=== PATIENT | male | born 1940 | race Caucasian/White ===

== ENCOUNTER 2017-07-20 09:57 | Outpatient (RCR) | payer MEDICARE, SELFPAY ==
[2017-07-20 10:16] LABS: Prothrombin Time Fingerstick 37.3 SEC (11.9-14.4)
== END 2017-07-20 10:15 | disposition home or self-care (01) ==
LOC: LAB 09:57
PROVIDERS: Family Provider Family Medicine; PCP Family Medicine; Visit Provider Internal Medicine Cardiovascular Disease
DX: I48.2 Chronic atrial fibrillation (principal)
CPT/HCPCS: 36416; 85610

== ENCOUNTER 2017-08-14 09:31 | Outpatient (RCR) | payer MEDICARE, SELFPAY ==
[2017-07-08 09:32] VITALS: BP 136/87; BMI 28.4
== END 2017-08-14 10:00 | disposition home or self-care (01) ==
LOC: LAB 09:31
PROVIDERS: Family Provider Family Medicine; PCP Family Medicine; Visit Provider Internal Medicine Cardiovascular Disease
DX: I48.2 Chronic atrial fibrillation (principal)
CPT/HCPCS: 36416; 85610

== ENCOUNTER 2017-09-15 09:37 | Outpatient (RCR) | payer MEDICARE, SELFPAY ==
[2017-09-15 09:55] LABS: Prothrombin Time Fingerstick 38.6 SEC (11.9-14.4)
== END 2017-09-15 10:00 | disposition home or self-care (01) ==
LOC: LAB 09:37
PROVIDERS: Family Provider Family Medicine; PCP Family Medicine; Visit Provider Internal Medicine Cardiovascular Disease
DX: I48.2 Chronic atrial fibrillation (principal)
CPT/HCPCS: 36416; 85610

== ENCOUNTER → 2017-09-17 09:01 | Outpatient (CLI) | payer MEDICARE, SELFPAY ==
[2017-09-17 12:42] LABS: Cholesterol 133 mg/dL (200); Glucose 105 mg/dL (74-106); High Density Lipoprotein 49 mg/dL; Triglycerides 82 mg/dL; Very Low Density Lipoprotein 16 mg/dL (5-40)
== END ==
PROVIDERS: Family Provider Family Medicine; PCP Family Medicine; Visit Provider Family Medicine
DX: E78.5 Hyperlipidemia, unspecified (principal)
CPT/HCPCS: 36415; 80061; 82947

== ENCOUNTER 2017-10-01 15:31 | Outpatient (RCR) | payer MEDICARE, SELFPAY ==
[2017-10-01 15:46] LABS: Prothrombin Time Fingerstick 32.3 SEC (11.9-14.4)
== END 2017-10-01 16:00 | disposition home or self-care (01) ==
LOC: LAB 15:31
PROVIDERS: Family Provider Family Medicine; PCP Family Medicine; Visit Provider Internal Medicine Cardiovascular Disease
DX: I48.2 Chronic atrial fibrillation (principal)
CPT/HCPCS: 36416; 85610

== ENCOUNTER 2017-11-09 10:18 | Outpatient (RCR) | payer MEDICARE, SELFPAY | END 2017-11-09 11:00 | disposition home or self-care (01) | LOC: LAB 10:18 | PROVIDERS: Family Provider Family Medicine; PCP Family Medicine; Visit Provider Internal Medicine Cardiovascular Disease | DX: I48.2 Chronic atrial fibrillation (principal) | CPT/HCPCS: 36416; 85610 ==

== ENCOUNTER 2017-12-16 09:43 | Outpatient (RCR) | payer MEDICARE, SELFPAY ==
[2017-12-16 09:56] LABS: Prothrombin Time Fingerstick 31.4 SEC (11.9-14.4)
== END 2017-12-17 10:00 | disposition home or self-care (01) ==
LOC: LAB 09:43
PROVIDERS: Family Provider Family Medicine; PCP Family Medicine; Visit Provider Internal Medicine Cardiovascular Disease
DX: I48.2 Chronic atrial fibrillation (principal)
CPT/HCPCS: 36416; 85610

== ENCOUNTER 2018-01-06 08:30 | Outpatient (RCR) | payer MEDICARE, SELFPAY | END 2018-01-06 10:00 | disposition home or self-care (01) | LOC: LAB 08:30 | PROVIDERS: Family Provider Family Medicine; PCP Family Medicine; Visit Provider Internal Medicine Cardiovascular Disease | DX: I48.2 Chronic atrial fibrillation (principal) | CPT/HCPCS: 36416; 85610 ==

== ENCOUNTER → 2018-02-16 09:46 | Outpatient (CLI) | payer MEDICARE, SELFPAY ==
[2018-02-16 12:17] LABS: Absolute Lymphocyte Count 0.84 X10^3/ul (0.83-4.51); Basophil# 0.02 X10^3/uL; Basophil% 0.4 % (0-1); Eosinophils% 4.3 % (0-5); Hematocrit 46.2 % (40-54); Hemoglobin 15.5 g/dl (13.0-16.5); Lymphocyte # 0.84 X10^3/ul (4.0); Lymphocyte % 18.1 % (19-41); Mean Corp Hgb Conc 33.5 g/gl (32-36); Mean Corpuscular Hgb 31.4 pg (27.0-32.0); Mean Corpuscular Volume 93.5 fL (80-94); Mean Platelet Vol. 9.9 fl (6.2-12.0); Monocyte# 0.58 X10^3/uL; Monocyte% 12.5 % (0-10); Neutrophil % 64.5 % (47-70); POSITIVE COUNT NO; POSITIVE DIFFERENTIAL NO; POSITIVE MORPHOLOGY NO; Platelet Count 159 K/mm3 (150-450); RBC Distribution Width CV 12.8 % (11.6-14.6); RBC Distribution Width SD 43.6 fl (35.1-43.9); Red Blood Count 4.94 M/mm3 (4.6-6.2); White Blood Count 4.7 K/mm3 (4.4-11.0)
[2018-02-16 12:37] LABS: International Normalized Ratio 2.9; Prothrombin Time (Protime)PT. 30.3 SECONDS (11.7-14.9)
[2018-02-16 12:41] LABS: Anion Gap 10 (5-15); BUN 14 mg/dL (7-18); BUN/Creat Ratio 18.7 RATIO (10-20); Calcium,Total 8.8 mg/dL (8.5-10.1); Chloride 107 mmol/L (98-107); Creatinine, Serum 0.75 mg/dL (0.70-1.30); EST Glomerular Filtration Rate 107 mL/min (>60); Est Glom Filt Rate - Afr Amer 129 mL/min (>60); Glucose 102 mg/dL (74-106); Potassium 4.1 mmol/L (3.5-5.1); Sodium Level 140 mmol/L (136-145); T4 Free Direct 1.12 ng/dL (0.76-1.46); Thyroid Stim Hormone (TSH) 1.01 uIU/mL (0.358-3.74)
== END ==
PROVIDERS: Family Provider Family Medicine; PCP Family Medicine; Visit Provider Family Medicine
DX: I10 Essential (primary) hypertension (principal); I48.91 Unspecified atrial fibrillation; D69.6 Thrombocytopenia, unspecified
CPT/HCPCS: 36415; 80048; 83735; 84439; 84443; 85025; 85610

== ENCOUNTER → 2018-02-17 10:34 | Outpatient (CLI) | payer MEDICARE, SELFPAY | PROVIDERS: Family Provider Family Medicine; PCP Family Medicine; Visit Provider Family Medicine | DX: M54.2 Cervicalgia (principal); G44.209 Tension-type headache, unspecified, not intractable | CPT/HCPCS: 72050 ==

== ENCOUNTER 2018-03-23 08:30 | Outpatient (RCR) | payer MEDICARE, SELFPAY ==
--- NOTE | 2018-02-24 11:57 | HP.PTEVAL_ITS ---
Patient's Visit Information ANNMARIE STAPLES is a 77 year old M referred to Physical Therapy by Kendrick Up MD with a diagnosis of CHRONIC NECK PAIN ,TENSION ABEBE. Date of Evaluation: 02/24/18 Physical Therapist: Andry Loyd PT, - Visit Plan Frequency: 2x /Week Duration: 4 Weeks Plan: manual therapy cervical traction/AA-OA MOS,OCCIPITAL RELEASE ,STM,US,CP/ MHP. graded postural/cervical ROM - Subjective Subjective: This 77 y/o male presents to physical therapy with chronic neck pain ,tension ABEBE. Patient pain located left occiput referrs to left eye. Patient symptoms have been problematic for about one year. Seen massage therapy helped. Seen Dr did x-rays.Symptoms worse with flexion ,siiting ,driving, computer work ,turn to left worse.Better with massage. Denies parahesia/ tingling. Denies dizziness,nausea,tinnitus. Symptoms desribed as ache, occassional sharp pain behinmd eye.Sleep okay at night. SOCIAL: . 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 VOCATION: retired - Pain Left Neck Pain Intensity (Out of 10): 3 Pain Intensity Range: 8 Comment: left occiput - Objective POSTURE: mild foward posture ,thoracic kyphosis,prutruded head. PALPATION: tender base of left occiput. NEURO: denies parathesia/tingling ,reflexes 2/3 C5 -6-7. AROM: BUE WFL. MMT: 4/5 ,except shoulders 4-/5. CERVICAL ROM: flexion min loss pain ,lateral flexion /rotation mod/severe loss pain left,retraction mod loss,extension min/mod loss. UPPER CERVICAL SPINE : mod loss. - Special Tests C/S Radiculapathy - Left Upper limb tension test: Negative C/S Radiculapathy - Right Upper limb tension test: Negative C/S Radiculapathy - Left Spurlings: Positive C/S Radiculapathy - Right Spurlings: Negative C/S Radiculapathy - Left Cervical distraction: Negative C/S Radiculapathy - Right Cervical distraction: Negative C/S Radiculapathy - Left Relief test: Positive C/S Radiculapathy - Right Relief test: Negative C/S Radiculapathy - Valsalva: Negative Sharp Jacinto: Negative Vertebral Artery Test: Negative Alar Ligament Test: Negative Cervical Sitting: Protrusion - Mechanical Response: No effect Cervical Sitting: Protrusion - Symptoms During Testing: Increases Cervical Sitting: Protrusion - Symptoms After Testing: Worse Cervical Sitting: Retraction - Mechanical Response: No effect Cervical Sitting: Retraction - Symptoms During Testing: Increases Cervical Sitting: Retraction - Symptoms After Testing: No worse - Goals Goal 1:: Patient to be Independant with HEP Goal Time Frame: 4-6 Weeks Goal 2:: Patient to be Independant with pposture for ADL'S Goal Time Frame: 4-6 Weeks Goal 3:: Patient decrease pain by 50% or greater to improve function with ADLS Goal Time Frame: 4-6 Weeks Goal 4:: Patient decrease cevical ROM towards left with min pain or ABEBE for function of recovery Goal Time Frame: 4-6 Weeks Goal 5:: Patient be able to perform ADL'S and housework tasks with min limitations Goal Time Frame: 4-6 Weeks Goal 6:: Patient neck owestry score by 5 points to improve QOL Goal Time Frame: 4-6 Weeks - Rehabilitation Potential Physical Therapy Diagnosis: This patient has decrease cercical ROM with pain worse towards left ,ABEBE left occiput impaires ADLS' ,and housework thus benifit from skilled PT Rehabilitation Potential: Good - Anticipated Interventions Patient/Client Instruction: Educate patient on: Condition, Plan of Care For the Purpose of:: To decrease pain, To increase ROM, To improve muscle performance and motor function, To improve ability to perform ADL's, To increase tolerance to activity/condition/position, To improve ability of physical actions for home/community/work/leisure, To improve health of tissue, To decrease soft tissue restriction, To increase flexibility/ROM, To improve ability to perform tasks related to life management Therapeutic Exercise to Include: Strength training, Postural training, Flexibilty training, Active ROM, Victoria Exercises For the Purpose of:: To decrease pain, To increase ROM, To improve nutrient delivery to tissue, To increase oxygenation perfusion, To increase tolerance to activity/condition/position, To improve ability of physical actions for home/ community/work/leisure, To improve health of tissue, To decrease soft tissue restriction, To increase flexibility/ROM, To prevent re-injury Manual Therapy Techniques to Include: Mobilization Comment: CERVICAL TRACTION For the Purpose of:: To decrease swelling/inflammation, To increase ROM, To improve nutrient delivery to tissue, To increase oxygenation perfusion, To improve health of tissue, To decrease soft tissue restriction, To increase flexibility/ROM Thank you for the opportunity to evaluate your patient. For Medicare and Medicare HMO plans, please review the plan of care and approve it. It will need to be FAXED BACK to us at [phone] for Medicare purposes. Please let me know if there are questions or concerns regarding this plan of care. Physician Signature: Date:
--- NOTE | 2018-03-23 12:36 | HP.PTDCSUM ---
HP - PT D/C Summary It has been my pleasure to treat ANNMARIE STAPLES under orders from Kendrick Up MD, for the diagnosis of CHRONIC NECK PAIN ,TENSION ABEBE for a total of 9 visit(s). Discharge Date: 03/23/18 Please see the following information for a summary of their discharge status. - Subjective Subjective: Doing okay ,no ABEBE. yesterday smptoms where worse - Pain Left Neck Pain Intensity (Out of 10): 1 - Overall Improvement % Improvement: 50 - Objective Objective/Function: POSTURE: mild foward posture,head foward. NEURO:denies parathesia/tingling ,reflexes intact. PALPATION: tender left occiput. CERVICAL ROM: flexion min loss,lateral flexion/rotation mod loss,extension mod loss. MMT: 4/5,shoulder 4-/5 - Goals Goal 1:: Patient to be Independant with HEP Goal Progress: Progressing Goal 2:: Patient to be Independant with pposture for ADL'S Goal Progress: Goal Met Goal 3:: Patient decrease pain by 50% or greater to improve function with ADLS Goal Progress: Goal Met Goal 4:: Patient decrease cevical ROM towards left with min pain or ABEBE for function of recovery Goal Progress: Progressing Goal 5:: Patient be able to perform ADL'S and housework tasks with min limitations Goal Progress: Progressing Goal 6:: Patient neck owestry score by 5 points to improve QOL Goal Progress: Goal Met - Plan Plan: D/C -RTD - D/C Information Discharge Comments: POSSIBLE TRACTION CERVICAL UNIT If there are questions or concerns regarding this patient's physical therapy, please feel free to call me at [phone]. Thank you for the referral of this patient. Sincerely, Andry Loyd, PT,
== END 2018-03-23 19:00 | disposition home or self-care (01) ==
LOC: PT 08:30
PROVIDERS: Family Provider Family Medicine; PCP Family Medicine; Visit Provider Family Medicine
DX: M54.2 Cervicalgia (principal); G44.209 Tension-type headache, unspecified, not intractable
CPT/HCPCS: 97035; 97140; 97162

== ENCOUNTER 2018-03-23 09:34 | Outpatient (RCR) | payer MEDICARE, SELFPAY ==
[2018-03-23 09:46] LABS: Prothrombin Time Fingerstick 32.4 SEC (11.9-14.4)
== END 2018-03-23 11:00 | disposition home or self-care (01) ==
LOC: LAB 09:34
PROVIDERS: Family Provider Family Medicine; PCP Family Medicine; Visit Provider Internal Medicine Cardiovascular Disease
DX: I48.2 Chronic atrial fibrillation (principal)
CPT/HCPCS: 36416; 85610; 97035; 97140

== ENCOUNTER 2018-05-21 09:19 | Outpatient (RCR) | payer MEDICARE, SELFPAY ==
[2018-05-06 09:41] LABS: Prothrombin Time Fingerstick 36.7 SEC (11.9-14.4)
[2018-05-11 10:34] LABS: International Normalized Ratio 1.3; Prothrombin Time (Protime)PT. 15.7 SECONDS (11.7-14.9)
[2018-05-21 09:36] LABS: Prothrombin Time Fingerstick 28.2 SEC (11.9-14.4)
== END 2018-05-24 10:54 | disposition home or self-care (01) ==
LOC: LAB 09:19
PROVIDERS: Family Provider Family Medicine; PCP Family Medicine; Referring Provider Internal Medicine Cardiovascular Disease; Visit Provider Internal Medicine Cardiovascular Disease
DX: I48.2 Chronic atrial fibrillation (principal)
CPT/HCPCS: 36415; 36416; 85610

== ENCOUNTER 2018-06-11 09:51 | Outpatient (RCR) | payer MEDICARE, SELFPAY ==
[2018-06-11 10:31] LABS: Prothrombin Time Fingerstick 29.9 SEC (11.9-14.4)
== END 2018-06-11 10:00 | disposition home or self-care (01) ==
LOC: LAB 09:51
PROVIDERS: Family Provider Family Medicine; PCP Family Medicine; Referring Provider Internal Medicine Cardiovascular Disease; Visit Provider Internal Medicine Cardiovascular Disease
DX: I48.2 Chronic atrial fibrillation (principal)
CPT/HCPCS: 36416; 85610

== ENCOUNTER 2018-07-13 12:00 | Outpatient (RCR) | payer MEDICARE, SELFPAY ==
[2018-07-01 10:30] LABS: International Normalized Ratio 1.3; Prothrombin Time (Protime)PT. 15.7 SECONDS (11.7-14.9)
[2018-07-13 12:11] LABS: Prothrombin Time Fingerstick 28.2 SEC (11.9-14.4)
== END 2018-07-13 13:00 | disposition home or self-care (01) ==
LOC: LAB 12:00
PROVIDERS: Family Provider Family Medicine; PCP Family Medicine; Referring Provider Internal Medicine Cardiovascular Disease; Visit Provider Internal Medicine Cardiovascular Disease
DX: I48.2 Chronic atrial fibrillation (principal)
CPT/HCPCS: 36415; 36416; 85610

== ENCOUNTER → 2018-07-26 10:14 | Outpatient (CLI) | payer MEDICARE, SELFPAY ==
--- NOTE | 2018-07-26 10:22 | MRI_ITS ---
STUDY: MRI CERVICAL SPINE WITHOUT CONTRAST REASON FOR EXAM: Male, 77 years old. L NECK STIFFNESS X 1.5 YRS. TECHNIQUE: Standardized fat and water weighted pulse sequences were obtained in the sagittal and axial planes. COMPARISON: X-ray dated February 17, 2018 FINDINGS: Normal foramen magnum and brainstem-cervical cord junction. Normal craniovertebral junction. Normal anterior atlantoaxial articulation. Normal odontoid process. There is straightening of the normal cervical lordosis. C2-3: There is minimal disc space narrowing and endplates spondylosis. There is a Minimal disc osteophyte complex without significant central canal stenosis. There is uncovertebral and facet arthropathy with minimal right and mild left foraminal stenosis. C3-4: There is moderate disc space narrowing and endplates spondylosis. There is a mild disc osteophyte complex with out significant central canal stenosis. There is uncovertebral facet arthropathy with mild right and moderate left foraminal stenosis. C4-5: There is moderate disc space narrowing and endplates spondylosis. There is a mild disc osteophyte complex with mild central canal stenosis. There is uncovertebral arthropathy with moderate bilateral foraminal stenosis. C5-6: There is moderate disc space narrowing and endplates spondylosis. There is a moderate disc osteophyte complex with moderate central canal stenosis. There is uncovertebral and facet arthropathy with moderate right and severe left foraminal stenosis. C6-7: There is moderate disc space narrowing and endplates spondylosis. There is a minimal disc osteophyte complex without significant central canal stenosis. There is uncovertebral arthropathy with mild bilateral foraminal stenosis. C7-T1: There is severe disc space narrowing and endplates spondylosis. There is a minimal disc osteophyte complex without significant central canal stenosis. There is uncovertebral nephropathy with moderate right and mild left foraminal stenosis. Normal cervical cord. Normal visualized soft tissue structures. MRI/Spine Cervical (Routine) IMPRESSION: C3/C4: Moderate left foraminal stenosis. C4/C5: Moderate bilateral foraminal stenosis. C5/C6: Moderate central canal stenosis. Moderate right and severe left foraminal stenosis. Left facet edema. C6/C7: Mild bilateral foraminal stenosis. C7/T1: Moderate right foraminal stenosis. Electronically Signed: Maksim Colbert MD at 15:59 EST Tel , Service support ,
== END ==
PROVIDERS: Family Provider Family Medicine; PCP Family Medicine; Referring Provider Nurse Practitioner Family; Visit Provider Nurse Practitioner Family
DX: M47.22 Other spondylosis with radiculopathy, cervical region (principal); M48.02 Spinal stenosis, cervical region; M48.9 Spondylopathy, unspecified; G31.89 Other specified degenerative diseases of nervous system
CPT/HCPCS: 72141

== ENCOUNTER → 2018-08-03 09:39 | Outpatient (CLI) | payer MEDICARE, SELFPAY ==
[2018-08-03 13:03] LABS: Absolute Lymphocyte Count 0.83 X10^3/ul (0.83-4.51); Absolute Neutrophil Count 3.1 X10^3/uL (2.0-7.7); Basophil# 0.02 X10^3/uL; Basophil% 0.4 % (0-1); Eosinophil# 0.17 X10^3/uL; Eosinophils% 3.6 % (0-5); Hemoglobin 15.9 g/dl (13.0-16.5); Lymphocyte # 0.83 X10^3/ul (4.0); Lymphocyte % 17.5 % (19-41); Mean Corp Hgb Conc 34.6 g/gl (32-36); Mean Corpuscular Hgb 32.6 pg (27.0-32.0); Mean Corpuscular Volume 94.3 fL (80-94); Mean Platelet Vol. 10.4 fl (6.2-12.0); Monocyte# 0.61 X10^3/uL; Monocyte% 12.9 % (0-10); Neutrophil # 3.09 X10^3/uL (2.7-7.7); Neutrophil % 65.4 % (47-70); Platelet Count 152 K/mm3 (150-450); RBC Distribution Width SD 44.9 fl (35.1-43.9); Red Blood Count 4.88 M/mm3 (4.6-6.2); White Blood Count 4.7 K/mm3 (4.4-11.0)
[2018-08-03 13:05] LABS: POSITIVE COUNT NO; POSITIVE DIFFERENTIAL NO; POSITIVE MORPHOLOGY NO
[2018-08-03 13:25] LABS: Anion Gap 11 (5-15); BUN 11 mg/dL (7-18); BUN/Creat Ratio 14.2 RATIO (10-20); Calcium,Total 8.9 mg/dL (8.5-10.1); Chloride 104 mmol/L (98-107); Creatinine, Serum 0.77 mg/dL (0.70-1.30); EST Glomerular Filtration Rate 103 mL/min (>60); Est Glom Filt Rate - Afr Amer 125 mL/min (>60); Glucose 117 mg/dL (74-106); Sodium Level 141 mmol/L (136-145)
== END ==
PROVIDERS: Family Provider Family Medicine; PCP Family Medicine; Visit Provider Family Medicine
DX: I10 Essential (primary) hypertension (principal); D69.6 Thrombocytopenia, unspecified
CPT/HCPCS: 36415; 80048; 85025

== ENCOUNTER 2018-08-13 10:16 | Outpatient (RCR) | payer MEDICARE, SELFPAY ==
[2018-08-13 10:30] LABS: Prothrombin Time Fingerstick 29.9 SEC (11.9-14.4)
== END 2018-08-19 14:38 | disposition home or self-care (01) ==
LOC: LAB 10:16
PROVIDERS: Family Provider Family Medicine; PCP Family Medicine; Referring Provider Internal Medicine Cardiovascular Disease; Visit Provider Internal Medicine Cardiovascular Disease
DX: I48.2 Chronic atrial fibrillation (principal)
CPT/HCPCS: 36416; 85610

== ENCOUNTER 2018-09-21 10:10 | Outpatient (RCR) | payer MEDICARE, SELFPAY | END 2018-10-19 16:00 | disposition home or self-care (01) | LOC: LAB 10:10 | PROVIDERS: Family Provider Family Medicine; PCP Family Medicine; Referring Provider Internal Medicine Cardiovascular Disease; Visit Provider Internal Medicine Cardiovascular Disease | DX: I48.2 Chronic atrial fibrillation (principal) | CPT/HCPCS: 36416; 85610 ==

== ENCOUNTER 2018-11-24 08:53 | Outpatient (RCR) | payer MEDICARE, SELFPAY | END 2018-11-24 09:00 | disposition home or self-care (01) | LOC: LAB 08:53 | PROVIDERS: Family Provider Family Medicine; PCP Family Medicine; Referring Provider Family Medicine; Visit Provider Family Medicine | DX: I48.91 Unspecified atrial fibrillation (principal) | CPT/HCPCS: 36416; 85610 ==

== ENCOUNTER 2018-12-29 09:26 | Outpatient (RCR) | payer MEDICARE, SELFPAY | END 2019-01-19 16:01 | disposition home or self-care (01) | LOC: LAB 09:26 | PROVIDERS: Family Provider Family Medicine; PCP Family Medicine; Referring Provider Family Medicine; Visit Provider Family Medicine | DX: I48.91 Unspecified atrial fibrillation (principal) | CPT/HCPCS: 36416; 85610 ==

== ENCOUNTER 2019-02-01 11:27 | Outpatient (RCR) | payer MEDICARE, SELFPAY ==
[2019-02-01 17:02] LABS: Prothrombin Time Fingerstick 26.7 SEC (11.9-14.4)
== END 2019-02-01 13:00 | disposition home or self-care (01) ==
LOC: LAB 11:27
PROVIDERS: Family Provider Family Medicine; PCP Family Medicine; Referring Provider Family Medicine; Visit Provider Family Medicine
DX: I48.91 Unspecified atrial fibrillation (principal)
CPT/HCPCS: 36416; 85610

== ENCOUNTER 2019-03-08 10:03 | Outpatient (RCR) | payer MEDICARE, SELFPAY ==
[2019-03-08 11:09] LABS: Prothrombin Time Fingerstick 24.4 SEC (11.9-14.4)
== END 2019-03-08 12:00 | disposition home or self-care (01) ==
LOC: LAB 10:03
PROVIDERS: Family Provider Family Medicine; PCP Family Medicine; Referring Provider Family Medicine; Visit Provider Family Medicine
DX: I48.91 Unspecified atrial fibrillation (principal)
CPT/HCPCS: 36416; 85610

== ENCOUNTER 2019-04-06 11:32 | Outpatient (RCR) | payer MEDICARE, SELFPAY | END 2019-04-06 18:00 | disposition home or self-care (01) | LOC: LAB 11:32 | PROVIDERS: Family Provider Family Medicine; PCP Family Medicine; Referring Provider Family Medicine; Visit Provider Family Medicine | DX: I48.91 Unspecified atrial fibrillation (principal) | CPT/HCPCS: 36416; 85610 ==

== ENCOUNTER 2019-05-04 10:02 | Outpatient (RCR) | payer MEDICARE, SELFPAY ==
[2019-04-27 10:37] VITALS: BMI 30.4
[2019-05-04 10:21] LABS: Prothrombin Time Fingerstick 23.8 SEC (11.9-14.4)
== END 2019-05-04 18:00 | disposition home or self-care (01) ==
LOC: LAB 10:02
PROVIDERS: Family Provider Family Medicine; PCP Family Medicine; Referring Provider Family Medicine; Visit Provider Family Medicine
DX: I48.91 Unspecified atrial fibrillation (principal)
CPT/HCPCS: 36416; 85610

== ENCOUNTER → 2019-05-18 06:58 | Outpatient (CLI) | payer MEDICARE, SELFPAY ==
[2019-04-27 10:37] VITALS: BMI 30.4
--- NOTE | 2019-05-18 07:03 | ECHOD_ITS ---
Reason For Study: Afib/Flutter Procedure This was a 2D Doppler, Color Flow transthoracic echocardiogram. Exam performed in department. Left Ventricle Normal LV size. Left ventricular systolic function is normal. The estimated ejection fraction is 60 %. Unable to assess diastolic dysfunction due to arrhythmia. No regional wall motion abnormalities noted. Right Ventricle Normal RV size. Normal systolic function. Atria The left atrium is moderately enlarged. The right atrium is mildly enlarged. Mitral Valve Normal mitral valve. Trivial eccentric mitral valve insufficiency. Tricuspid Valve Normal tricuspid valve. Mild (1+) tricuspid valve insufficiency. Pulmonary artery systolic pressure is 34 mmHg. Aortic Valve Normal aortic valve. Trisinus/trileaflet aortic valve. Pulmonic Valve Normal pulmonic valve. Great Vessels Normal aortic root. The pulmonary artery is normal size. Normal inferior vena cava. Pericardium/Pleural No pericardial effusion. MMode/2D Measurements & Calculations LVIDd: 4.5 cm IVSd: 1.0 cm Ao root diam: 3.3 cm LVIDs: 2.6 cm LVPWd: 1.0 cm LA dimension: 4.4 cm RVDd: 3.3 cm FS: 41.1 % LAV(MOD-bp): 102.7 ml LA A4 area: 29.3 cm2 RA A4 area: 23.9 cm2 LAV(MOD-bp) Indexed: 51.1 ml/m2 LAV(MOD-sp2): 86.9 ml LAV(MOD-sp4): 95.4 ml Doppler Measurements & Calculations MV E max elias: 94.7 cm/sec Ao V2 max: 106.0 cm/sec LV V1 max: 78.4 cm/sec Ao max P.5 mmHg LV V1 max P.5 mmHg PA V2 max: 82.8 cm/sec TR max elias: 268.6 cm/sec TR max P.9 mmHg Interpretation Summary Normal LV size. Left ventricular systolic function is normal. The estimated ejection fraction is 60 %. Unable to assess diastolic dysfunction due to arrhythmia. Mild (1+) tricuspid valve insufficiency. Ordering Physician: Andrez Fernandez Referring Physician: Kendrick Up Performed By: Nestor Madison RCS
--- NOTE | 2019-05-18 16:52 | STRESSREP ---
Stress Test Report Pharmacologic myocardial perfusion stress test. 78-year-old man with a history of chest pain. Stress protocol: Resting EKG demonstrates normal sinus rhythm with a rate of 71 bpm normal intervals are noted. The resting blood pressure is 150/78 mmHg. 0.4 mg of regadenoson was infused per usual protocol followed by rapid intravenous saline flush injection continuous EKG monitoring was performed. The maximum heart rate attained was 97 bpm which was 68% of maximum predicted heart rate the maximum workload was 1 metabolic equivalent. At rest there were no ST or T wave changes noted suggest ischemia peak infusion nonspecific ST-T wave changes were noted no clinical angina was noted. Resting blood pressures 150/78 with a final blood pressure 142/68. Myocardial perfusion protocol. 11.0 mCi of technetium 99m sestamibi was injected at rest. 0.4 mg of regadenoson was infused per usual protocol peak infusion 32.0 mCi of technetium 99m sestamibi was injected stress images were obtained stress and rest images were reconstructed and compared in the short axis vertical and horizontal gated images was obtained Perfusion SPECT analysis: Review of the stress images demonstrate normal uptake of tracer noted in all areas of myocardium the resting images similar demonstrate normal uptake of tracer noted in all areas of myocardium. No reversibility is noted suggest ischemia. Gated SPECT analysis: The gated ejection fraction is noted to be 72%. Conclusion: Normal pharmacologic myocardial perfusion stress test. Preserved ejection fraction.
== END ==
PROVIDERS: Family Provider Family Medicine; PCP Family Medicine; Referring Provider Internal Medicine Cardiovascular Disease; Visit Provider Internal Medicine Cardiovascular Disease
DX: I48.11 Longstanding persistent atrial fibrillation (principal); R94.31 Abnormal electrocardiogram [ECG] [EKG]; E78.5 Hyperlipidemia, unspecified; I10 Essential (primary) hypertension
CPT/HCPCS: 78452; 93017; 93306; A9500; A4216; J2785

== ENCOUNTER 2019-06-07 11:05 | Outpatient (RCR) | payer MEDICARE, SELFPAY ==
[2019-04-27 10:37] VITALS: BMI 30.4
[2019-06-07 12:11] LABS: Prothrombin Time Fingerstick 24.5 SEC (11.9-14.4)
== END 2019-06-07 18:00 | disposition home or self-care (01) ==
LOC: LAB 11:05
PROVIDERS: Family Provider Family Medicine; PCP Family Medicine; Referring Provider Family Medicine; Visit Provider Family Medicine
DX: I48.20 Chronic atrial fibrillation, unspecified (principal)
CPT/HCPCS: 36416; 85610

== ENCOUNTER 2019-07-05 11:15 | Outpatient (RCR) | payer MEDICARE, SELFPAY ==
[2019-04-27 10:37] VITALS: BMI 30.4
[2019-07-05 17:43] LABS: Prothrombin Time Fingerstick 26.6 SEC (11.9-14.4)
[2019-07-06 15:31] LABS: Prothrombin Time Fingerstick 26.6 SEC (11.9-14.4)
== END 2019-07-05 18:00 | disposition home or self-care (01) ==
LOC: LAB 11:15
PROVIDERS: Family Provider Family Medicine; PCP Family Medicine; Referring Provider Family Medicine; Visit Provider Family Medicine
DX: I48.91 Unspecified atrial fibrillation (principal)
CPT/HCPCS: 36416; 85610

== ENCOUNTER 2019-08-11 15:38 | Outpatient (RCR) | payer MEDICARE, SELFPAY ==
[2019-04-27 10:37] VITALS: BMI 30.4
== END 2019-08-11 18:00 | disposition home or self-care (01) ==
LOC: LAB 15:38
PROVIDERS: Family Provider Family Medicine; PCP Family Medicine; Referring Provider Family Medicine; Visit Provider Family Medicine
DX: I48.91 Unspecified atrial fibrillation (principal)
CPT/HCPCS: 36416; 85610

== ENCOUNTER → 2019-08-23 | Outpatient (CLI) | payer MEDICARE, SELFPAY ==
[2019-04-27 10:37] VITALS: BMI 30.4
[2019-08-24 23:09] LABS: Giardia Lamblia, Stool EIA Negative (Negative)
== END | disposition home or self-care (01) ==
LOC: LABSPEC 10:37
PROVIDERS: PCP Family Medicine; Referring Provider Family Medicine; Visit Provider Family Medicine
DX: R19.7 Diarrhea, unspecified (principal)
CPT/HCPCS: 87329; 87493; 87506

== ENCOUNTER 2019-09-13 10:24 | Outpatient (RCR) | payer MEDICARE, SELFPAY ==
[2019-04-27 10:37] VITALS: BMI 30.4
[2019-09-13 10:41] LABS: Prothrombin Time Fingerstick 25.4 SEC (11.9-14.4)
== END 2019-09-13 18:00 | disposition home or self-care (01) ==
LOC: LAB 10:24
PROVIDERS: Family Provider Family Medicine; PCP Family Medicine; Referring Provider Family Medicine; Visit Provider Family Medicine
DX: I48.91 Unspecified atrial fibrillation (principal)
CPT/HCPCS: 36416; 85610

== ENCOUNTER 2019-10-14 09:51 | Outpatient (RCR) | payer MEDICARE, SELFPAY ==
[2019-04-27 10:37] VITALS: BMI 30.4
== END 2019-10-20 18:00 | disposition home or self-care (01) ==
LOC: LAB 09:51
PROVIDERS: Family Provider Family Medicine; PCP Family Medicine; Referring Provider Family Medicine; Visit Provider Family Medicine
DX: I48.91 Unspecified atrial fibrillation (principal)
CPT/HCPCS: 36416; 85610

== ENCOUNTER 2019-11-24 11:25 | Outpatient (RCR) | payer MEDICARE, SELFPAY ==
[2019-04-27 10:37] VITALS: BMI 30.4
== END 2019-11-24 18:00 ==
LOC: LAB 11:25
PROVIDERS: Family Provider Family Medicine; PCP Family Medicine; Referring Provider Family Medicine; Visit Provider Family Medicine
DX: I48.91 Unspecified atrial fibrillation (principal)
CPT/HCPCS: 36416; 85610

== ENCOUNTER 2019-12-30 10:22 | Outpatient (RCR) | payer MEDICARE, SELFPAY ==
[2019-11-29 09:43] VITALS: BMI 30.9
[2019-12-30 10:30] LABS: Prothrombin Time Fingerstick 24.6 SEC (11.9-14.4)
== END 2019-12-30 18:00 | disposition home or self-care (01) ==
LOC: LAB 10:22
PROVIDERS: Family Provider Family Medicine; PCP Family Medicine; Referring Provider Family Medicine; Visit Provider Family Medicine
DX: I48.91 Unspecified atrial fibrillation (principal)
CPT/HCPCS: 36416; 85610

== ENCOUNTER → 2020-01-05 | Outpatient (CLI) | payer MEDICARE, SELFPAY ==
[2019-04-27 10:37] VITALS: BMI 30.4
[2019-11-29 09:43] VITALS: BMI 30.9
[2020-01-06 07:08] LABS: SARS-COV-2 TOTAL ABS Nonreactive (Nonreactive)
== END | disposition home or self-care (01) ==
LOC: BFHLAB 13:24
PROVIDERS: PCP Family Medicine; Visit Provider Family Medicine
DX: Z20.828 Contact with and (suspected) exposure to other viral communicable diseases (principal)
CPT/HCPCS: 86769; G2023

== ENCOUNTER 2020-02-01 11:07 | Outpatient (RCR) | payer MEDICARE, SELFPAY ==
[2019-11-29 09:43] VITALS: BMI 30.9
[2020-02-02 07:20] LABS: Prothrombin Time Fingerstick 25.4 SEC (11.9-14.4)
== END 2020-02-20 18:00 | disposition home or self-care (01) ==
LOC: LAB 11:07
PROVIDERS: Family Provider Family Medicine; PCP Family Medicine; Referring Provider Family Medicine; Visit Provider Family Medicine
DX: I48.91 Unspecified atrial fibrillation (principal)
CPT/HCPCS: 36416; 85610

== ENCOUNTER 2020-03-13 11:52 | Outpatient (RCR) | payer MEDICARE, SELFPAY ==
[2019-11-29 09:43] VITALS: BMI 30.9
[2020-03-13 12:11] LABS: Prothrombin Time Fingerstick 33.6 SEC (11.9-14.4)
== END 2020-03-13 18:00 | disposition home or self-care (01) ==
LOC: LAB 11:52
PROVIDERS: Family Provider Family Medicine; PCP Family Medicine; Referring Provider Family Medicine; Visit Provider Family Medicine
DX: I48.91 Unspecified atrial fibrillation (principal)
CPT/HCPCS: 36416; 85610

== ENCOUNTER 2020-04-11 15:38 | Outpatient (RCR) | payer MEDICARE, SELFPAY ==
[2019-11-29 09:43] VITALS: BMI 30.9
[2020-04-11 15:45] LABS: Prothrombin Time Fingerstick 31.4 SEC (11.9-14.4)
== END 2020-04-11 18:00 | disposition home or self-care (01) ==
LOC: LAB 15:38
PROVIDERS: Family Provider Family Medicine; PCP Family Medicine; Referring Provider Family Medicine; Visit Provider Family Medicine
DX: I48.91 Unspecified atrial fibrillation (principal)
CPT/HCPCS: 36416; 85610

== ENCOUNTER 2020-05-23 10:35 | Outpatient (RCR) | payer MEDICARE, SELFPAY ==
[2019-11-29 09:43] VITALS: BMI 30.9
== END 2020-05-23 18:00 | disposition home or self-care (01) ==
LOC: LAB 10:35
PROVIDERS: Family Provider Family Medicine; PCP Family Medicine; Referring Provider Family Medicine; Visit Provider Family Medicine
DX: I48.91 Unspecified atrial fibrillation (principal)
CPT/HCPCS: 36416; 85610

== ENCOUNTER 2020-06-25 11:36 | Outpatient (RCR) | payer MEDICARE, SELFPAY ==
[2019-11-29 09:43] VITALS: BMI 30.9
[2020-06-25 11:56] LABS: Prothrombin Time Fingerstick 29.6 SEC (11.9-14.4)
== END 2020-06-25 18:00 | disposition home or self-care (01) ==
LOC: LAB 11:36
PROVIDERS: Family Provider Family Medicine; PCP Family Medicine; Referring Provider Family Medicine; Visit Provider Family Medicine
DX: I48.91 Unspecified atrial fibrillation (principal)
CPT/HCPCS: 36416; 85610

== ENCOUNTER 2020-08-06 11:03 | Outpatient (RCR) | payer MEDICARE, SELFPAY ==
[2019-11-29 09:43] VITALS: BMI 30.9
== END 2020-08-06 18:00 | disposition home or self-care (01) ==
LOC: LAB 11:03
PROVIDERS: Family Provider Family Medicine; PCP Family Medicine; Referring Provider Family Medicine; Visit Provider Family Medicine
DX: I48.91 Unspecified atrial fibrillation (principal)
CPT/HCPCS: 36416; 85610

== ENCOUNTER 2020-09-12 11:08 | Outpatient (RCR) | payer MEDICARE, SELFPAY ==
[2020-08-08 11:30] VITALS: BMI 28.8
[2020-09-12 11:15] LABS: INR Fingerstick 2.5; Prothrombin Time Fingerstick 27.7 SEC (11.9-14.4)
== END 2020-09-12 18:00 | disposition home or self-care (01) ==
LOC: LAB 11:08
PROVIDERS: Family Provider Family Medicine; PCP Family Medicine; Referring Provider Family Medicine; Visit Provider Family Medicine
DX: I48.91 Unspecified atrial fibrillation (principal)
CPT/HCPCS: 36416; 85610

== ENCOUNTER 2020-11-16 11:27 | Outpatient (RCR) | payer MEDICARE, SELFPAY ==
[2020-08-08 11:30] VITALS: BMI 28.8
[2020-11-16 11:35] LABS: INR Fingerstick 2.5; Prothrombin Time Fingerstick 28.2 SEC (11.9-14.4)
== END 2020-11-16 18:00 | disposition home or self-care (01) ==
LOC: LAB 11:27
PROVIDERS: Family Provider Family Medicine; PCP Family Medicine; Referring Provider Family Medicine; Visit Provider Family Medicine
DX: I48.91 Unspecified atrial fibrillation (principal)
CPT/HCPCS: 36415; 36416; 85610

== ENCOUNTER 2020-12-18 08:11 | Outpatient (RCR) | payer MEDICARE, SELFPAY ==
[2020-08-08 11:30] VITALS: BMI 28.8
[2020-12-18 08:30] LABS: INR Fingerstick 2.1; Prothrombin Time Fingerstick 24.2 SEC (11.9-14.4)
== END 2020-12-18 18:00 | disposition home or self-care (01) ==
LOC: LAB 08:11
PROVIDERS: Family Provider Family Medicine; PCP Family Medicine; Referring Provider Family Medicine; Visit Provider Family Medicine
DX: I48.91 Unspecified atrial fibrillation (principal)
CPT/HCPCS: 36416; 85610

== ENCOUNTER 2021-02-08 10:00 | Outpatient (RCR) | payer MEDICARE, SELFPAY ==
[2020-08-08 11:30] VITALS: BMI 28.8
[2021-02-08 10:11] LABS: Prothrombin Time Fingerstick 22.9 SEC (11.9-14.4)
== END 2021-02-08 18:00 | disposition home or self-care (01) ==
LOC: LAB 10:00
PROVIDERS: Family Provider Family Medicine; PCP Family Medicine; Referring Provider Family Medicine; Visit Provider Family Medicine
DX: I48.91 Unspecified atrial fibrillation (principal)
CPT/HCPCS: 36416; 85610

== ENCOUNTER 2021-04-19 10:22 | Outpatient (RCR) | payer MEDICARE, SELFPAY ==
[2021-02-19 19:59] VITALS: BMI 28.8
[2021-04-19 10:31] LABS: INR Fingerstick 2.3; Prothrombin Time Fingerstick 25.5 SEC (11.9-14.4)
== END 2021-04-21 03:31 | disposition home or self-care (01) ==
LOC: LAB 10:22
PROVIDERS: Family Provider Family Medicine; PCP Family Medicine; Referring Provider Family Medicine; Visit Provider Family Medicine
DX: I48.91 Unspecified atrial fibrillation (principal)
CPT/HCPCS: 36416; 85610

== ENCOUNTER 2021-05-30 10:23 | Outpatient (RCR) | payer MEDICARE, SELFPAY ==
[2021-04-21 03:31] VITALS: BMI 28.8
[2021-05-30 16:56] LABS: INR Fingerstick 2.3; Prothrombin Time Fingerstick 26.3 SEC (11.9-14.4)
== END 2021-06-22 18:00 | disposition home or self-care (01) ==
LOC: LAB 10:23
PROVIDERS: Family Provider Family Medicine; PCP Family Medicine; Referring Provider Family Medicine; Visit Provider Family Medicine
DX: I48.91 Unspecified atrial fibrillation (principal)
CPT/HCPCS: 36416; 85610

== ENCOUNTER 2021-08-01 11:21 | Outpatient (RCR) | payer MEDICARE, SELFPAY ==
[2021-06-23 03:59] VITALS: BMI 28.8
[2021-08-01 11:31] LABS: INR Fingerstick 1.7; Prothrombin Time Fingerstick 20.9 SEC (11.9-14.4)
== END 2021-08-01 18:00 | disposition home or self-care (01) ==
LOC: LAB 11:21
PROVIDERS: Family Provider Family Medicine; PCP Family Medicine; Referring Provider Family Medicine; Visit Provider Family Medicine
DX: I48.91 Unspecified atrial fibrillation (principal)
CPT/HCPCS: 36416; 85610

== ENCOUNTER 2021-08-23 10:45 | Outpatient (CLI) | payer MEDICARE, SELFPAY ==
--- NOTE | 2021-08-23 11:00 | RAD_ITS ---
Bone length study INDICATION: Unequal limb length. TECHNIQUE: Frontal views of the lower extremities were obtained with a radiopaque ruler between the legs. 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 Furthermore, there is a healed fracture of the midshaft of the left femur just distal to the stem of the hip prosthesis. There is pelvic tilt with approximately 1 cm distal location of the acetabulum of the left prosthesis when compared with the right. At the level of the knees, there is approximately 1.5 cm distal location of the left tibial plateau when compared with the right. At the level the ankle, there is approximately 1 cm distal location of the left talar dome when compared with the right. IMPRESSION: Increased length of the left lower extremity when compared with the right with pelvic tilt and a healed fracture the midshaft of the left femur. Electronically Signed: Matheus Cosby MD at 8:16 EST , RAD/Bone Length
== END 2021-08-23 23:59 | disposition home or self-care (01) ==
LOC: RAD 10:47
PROVIDERS: PCP Family Medicine; Referring Provider Specialist; Visit Provider Specialist
DX: M21.759 Unequal limb length (acquired), unspecified femur (principal); I48.91 Unspecified atrial fibrillation
CPT/HCPCS: 36416; 77073; 85610

== ENCOUNTER 2021-08-23 11:25 | Outpatient (RCR) | payer MEDICARE, SELFPAY ==
[2021-08-20 09:30] VITALS: BMI 28.8
[2021-08-27 10:51] LABS: Prothrombin Time Fingerstick 23.8 SEC (11.7-14.9)
== END 2021-09-19 18:00 | disposition home or self-care (01) ==
LOC: LAB 11:25
PROVIDERS: Family Provider Family Medicine; PCP Family Medicine; Referring Provider Family Medicine; Visit Provider Family Medicine
DX: I48.91 Unspecified atrial fibrillation (principal)
CPT/HCPCS: 36416; 85610

== ENCOUNTER 2021-11-19 14:25 | Outpatient (RCR) | payer MEDICARE, SELFPAY ==
[2021-09-20 01:33] VITALS: BMI 28.8
[2021-11-21 13:40] LABS: Prothrombin Time Fingerstick 23.5 SEC (11.7-14.9)
== END 2021-11-19 18:00 | disposition home or self-care (01) ==
LOC: LAB 14:25
PROVIDERS: Family Provider Family Medicine; PCP Family Medicine; Referring Provider Family Medicine; Visit Provider Family Medicine
DX: I48.91 Unspecified atrial fibrillation (principal)
CPT/HCPCS: 36416; 85610

== ENCOUNTER 2022-01-06 11:13 | Outpatient (RCR) | payer MEDICARE, SELFPAY ==
[2021-11-19 20:29] VITALS: BMI 28.8
[2022-01-06 11:25] LABS: INR Fingerstick 2.5
== END 2022-01-19 02:08 | disposition home or self-care (01) ==
LOC: LAB 11:13
PROVIDERS: Family Provider Family Medicine; PCP Family Medicine; Referring Provider Family Medicine; Visit Provider Family Medicine
DX: I48.91 Unspecified atrial fibrillation (principal)
CPT/HCPCS: 36416; 85610

== ENCOUNTER 2022-02-11 09:42 | Outpatient (RCR) | payer MEDICARE, SELFPAY ==
[2022-01-19 02:08] VITALS: BMI 28.8
[2022-02-11 09:50] LABS: INR Fingerstick 1.6; Prothrombin Time Fingerstick 19.8 SEC (11.7-14.9)
== END 2022-02-11 18:00 | disposition home or self-care (01) ==
LOC: LAB 09:42
PROVIDERS: Family Provider Family Medicine; PCP Family Medicine; Referring Provider Family Medicine; Visit Provider Family Medicine
DX: I48.91 Unspecified atrial fibrillation (principal)
CPT/HCPCS: 36416; 85610

== ENCOUNTER 2022-03-07 15:53 | Outpatient (RCR) | payer MEDICARE, SELFPAY ==
[2022-02-19 22:45] VITALS: BMI 28.8
[2022-03-07 17:26] LABS: International Normalized Ratio 3.1; Prothrombin Time (Protime)PT. 31.3 SECONDS (11.7-14.9)
== END 2022-03-07 18:00 | disposition home or self-care (01) ==
LOC: LAB 15:53
PROVIDERS: Family Provider Family Medicine; PCP Family Medicine; Referring Provider Family Medicine; Visit Provider Family Medicine
DX: I48.91 Unspecified atrial fibrillation (principal)
CPT/HCPCS: 36415; 85610

== ENCOUNTER 2022-04-28 09:23 | Outpatient (RCR) | payer MEDICARE, SELFPAY ==
[2022-03-21 20:35] VITALS: BMI 28.8
[2022-04-28 09:31] LABS: INR Fingerstick 2.1; Prothrombin Time Fingerstick 24.3 SEC (11.7-14.9)
== END 2022-05-21 18:00 | disposition home or self-care (01) ==
LOC: LAB 09:23
PROVIDERS: Family Provider Family Medicine; PCP Family Medicine; Referring Provider Family Medicine; Visit Provider Family Medicine
DX: I48.91 Unspecified atrial fibrillation (principal)
CPT/HCPCS: 36416; 85610

== ENCOUNTER → 2022-05-23 | Outpatient (CLI) | payer MEDICARE, SELFPAY ==
--- NOTE | 2022-05-23 12:56 | US_ITS ---
INDICATION: RIGHT FLANK PAIN EXAMINATION: US Kidney(s) complete (eg, kidneys and bladder) TECHNIQUE: Abdul scale and color doppler images were obtained of the kidneys. COMPARISON: None. FINDINGS: RIGHT KIDNEY: Measures 11.5 cm in length.. There is no hydronephrosis. No shadowing calculus, focal lesion or perinephric collection is demonstrated. LEFT KIDNEY: Measures 12.9 cm in length.. There is no hydronephrosis. No shadowing calculus, focal lesion or perinephric collection is demonstrated. URINARY BLADDER: No acute abnormality. US/Kidney and Bladder IMPRESSION: Negative renal ultrasound. Electronically Signed: Bradley Lassiter MD at 17:03 EST ,
== END | disposition home or self-care (01) ==
LOC: US 12:51
PROVIDERS: PCP Family Medicine; Referring Provider Family Medicine; Visit Provider Family Medicine
DX: M54.9 Dorsalgia, unspecified (principal); R31.29 Other microscopic hematuria
CPT/HCPCS: 76770

== ENCOUNTER 2022-06-02 08:52 | Outpatient (RCR) | payer MEDICARE, SELFPAY ==
[2022-05-21 22:54] VITALS: BMI 28.8
[2022-06-03 06:51] LABS: INR Fingerstick 2.2; Prothrombin Time Fingerstick 25.4 SEC (11.7-14.9)
== END 2022-06-02 18:00 | disposition home or self-care (01) ==
LOC: LAB 08:52
PROVIDERS: Family Provider Family Medicine; PCP Family Medicine; Referring Provider Family Medicine; Visit Provider Family Medicine
DX: I48.91 Unspecified atrial fibrillation (principal)
CPT/HCPCS: 36416; 85610

== ENCOUNTER → 2022-06-03 | Outpatient (CLI) | payer MEDICARE, SELFPAY ==
--- NOTE | 2022-06-03 09:08 | ART_ITS ---
Reason For Study: PAD Procedure A bilateral lower extremity continuous wave Doppler with analog waveform analysis,segmental pressures,and ankle brachial indexes with exercise. Non-Compressible SKYLAR's. Did not exercise patient. Left Segmental Pressures Left brachial= 119mmHg. Left thigh = >254mmHg. Left calf = >254mmHg. Left posterior tibial artery = >254mmHg. Left dorsalis pedis artery = >254mmHg. Left digit = 58 mmHg. The left posterior tibial artery waveforms are monophasic. The left dorsalis pedis waveforms are monophasic. Right Segmental Pressures Right brachial= 123mmHg. Right thigh = >254mmHg. Right calf = >254mmHg. Right posterior tibial artery = 190mmHg. Right dorsalis pedis artery = 244mmHg. Right digit = 91 mmHg. The right posterior tibial artery waveforms are triphasic. The right dorsalis pedis waveforms are biphasic. Indices The right ankle brachial index by the posterior tibial artery is 1.54. The right ankle brachial index by the dorsalis pedis is 1.98. The right digital-brachial index is 0.74. The left ankle brachial index by the posterior tibial artery is N/C. The left ankle brachial index by the dorsalis pedis is N/C. The left digital-brachial index is 0.47. VL/Lower Ext Art Exam w/ Exercise Interpretation Summary Right low thigh and calf indices not calculable due to the incompressible vesse ls. Right PT and DP ankle-brachial indices appear artificially elevated at 1.54 and 1.98 also consi stent with medial calcification of vessel. The right PT Doppler waveform is triphasic which is no rmal while the dorsalis pedis is biphasic which is just mild to moderate disease The right digital brachial index is borderline abnormal at 0.74 None of the indices of the left lower extremity are calculable due to artificia lly elevated systolic pressures. The left posterior tibial and dorsalis pedis Doppler waveforms are only monopha sic which is abnormal consistent with multisegmental disease. Abnormal left digital brachial index of 0.47 Ordering Physician: Amrita Garcia Referring Physician: Kendrick Up Performed By: Ronnie Harley RVT
== END | disposition home or self-care (01) ==
PROVIDERS: PCP Family Medicine; Visit Provider Orthopaedic Surgery Orthopaedic Surgery of the Spine
DX: I73.9 Peripheral vascular disease, unspecified (principal)
CPT/HCPCS: 93924

== ENCOUNTER 2022-07-15 11:18 | Outpatient (RCR) | payer MEDICARE, SELFPAY ==
[2022-06-22 00:50] VITALS: BMI 28.8
[2022-07-15 11:30] LABS: INR Fingerstick 2.1; Prothrombin Time Fingerstick 24.6 SEC (11.7-14.9)
== END 2022-07-15 12:00 | disposition home or self-care (01) ==
LOC: LAB 11:18
PROVIDERS: Family Provider Family Medicine; PCP Family Medicine; Referring Provider Family Medicine; Visit Provider Family Medicine
DX: I48.91 Unspecified atrial fibrillation (principal)
CPT/HCPCS: 36416; 85610

== ENCOUNTER → 2022-08-01 | Outpatient (CLI) | payer MEDICARE, SELFPAY ==
--- NOTE | 2022-08-01 08:56 | CDU_ITS ---
Reason For Study: BILATERAL CAROTID STENOSIS Rt. Velocities/BP Lt. Velocities/BP Prox CCA 70.5/11.9 cm/sec. Prox CCA 82.0/11.7 cm/sec. Mid CCA 65.8/10.0 cm/sec. Mid CCA 61.1/12.7 cm/sec. Dist CCA 50.6/11.9 cm/sec. Dist CCA 55.6/13.8 cm/sec. Prox ICA 56.6/14.1 cm/sec. Prox ICA 54.5/14.9 cm/sec. Mid ICA 57.5/17.9 cm/sec. Mid ICA 62.2/10.6 cm/sec. Dist ICA 54.7/11.2 cm/sec. Dist ICA 59.2/19.7 cm/sec. Rt. ICA/CCA = 57.7/65.8=0.9. Lt. ICA/CCA = 62.2/61.1=1.0. Prox ECA 84.6/4.3 cm/sec. Prox ECA 73.2/9.5 cm/sec. Rt. Vert. 32.0/4.6 cm/sec. Lt. Vert. 39.5/8.7 cm/sec. Right Extracranial There is heterogeneous, irregular atherosclerotic plaque noted in the right common carotid artery. There is heterogeneous, irregular atherosclerotic plaque noted in the right internal carotid artery. There is intimal thickening but no significant atherosclerotic plaque noted in the right external carotid artery. Antegrade flow is noted in the right vertebral artery. Left Extracranial There is intimal thickening but no significant atherosclerotic plaque noted in the left common carotid artery. There is heterogeneous, irregular atherosclerotic plaque noted in the left internal carotid artery. There is no significant atherosclerotic plaque noted in the left external carotid artery. Antegrade flow is noted in the left vertebral artery. Procedure Carotid Duplex 50666. This is a Carotid Duplex examination using B-mode, color flow and specral Doppler. Exam performed in department. VL/Carotid Duplex Ultrasound Interpretation Summary Irregular calcific plaque with shadowing at the proximal right internal carotid artery with less than 50% stenosis Less than 50% stenosis right external carotid artery Irregular calcific plaque with shadowing at the proximal left internal carotid artery with less than 50% stenosis Less than 50% stenosis left external carotid artery Patent and antegrade vertebrals bilaterally Ordering Physician: Mango Edward Referring Physician: Kendrick Up Performed By: Sejal Kitchen, TROY, RVT
== END | disposition home or self-care (01) ==
LOC: CVS 08:52
PROVIDERS: PCP Family Medicine; Referring Provider Surgery; Visit Provider Surgery
DX: I65.23 Occlusion and stenosis of bilateral carotid arteries (principal)
CPT/HCPCS: 93880

== ENCOUNTER 2022-09-11 10:11 | Outpatient (RCR) | payer MEDICARE, SELFPAY ==
[2022-07-23 08:03] VITALS: BMI 28.8
[2022-09-11 10:25] LABS: INR Fingerstick 2.6; Prothrombin Time Fingerstick 28.2 SEC (11.7-14.9)
== END 2022-09-19 21:42 | disposition home or self-care (01) ==
LOC: LAB 10:11
PROVIDERS: Referring Provider Family Medicine; Visit Provider Family Medicine
DX: I48.91 Unspecified atrial fibrillation (principal)
CPT/HCPCS: 36416; 85610

== ENCOUNTER 2022-10-17 10:17 | Outpatient (RCR) | payer MEDICARE, SELFPAY ==
[2022-09-19 21:42] VITALS: BMI 28.8
[2022-10-17 10:25] LABS: INR Fingerstick 2.3; Prothrombin Time Fingerstick 24.8 SEC (11.7-14.9)
== END 2022-10-19 01:08 | disposition home or self-care (01) ==
LOC: LAB 10:17
PROVIDERS: PCP Nurse Practitioner Family; Referring Provider Nurse Practitioner Family; Visit Provider Nurse Practitioner Family
DX: I48.91 Unspecified atrial fibrillation (principal)
CPT/HCPCS: 36416; 85610

== ENCOUNTER 2022-12-03 11:06 | Outpatient (RCR) | payer MEDICARE, SELFPAY ==
[2022-10-19 01:08] VITALS: BMI 28.8
[2022-12-03 11:18] LABS: INR Fingerstick 2.8; Prothrombin Time Fingerstick 30.4 SEC (11.7-14.9)
== END 2022-12-03 18:00 | disposition home or self-care (01) ==
LOC: LAB 11:06
PROVIDERS: PCP Nurse Practitioner Family; Referring Provider Nurse Practitioner Family; Visit Provider Nurse Practitioner Family
DX: I48.91 Unspecified atrial fibrillation (principal)
CPT/HCPCS: 36416; 85610

== ENCOUNTER 2023-01-15 10:13 | Outpatient (RCR) | payer MEDICARE, SELFPAY ==
[2022-12-19 21:45] VITALS: BMI 28.8
[2023-01-15 10:20] LABS: INR Fingerstick 2.5; Prothrombin Time Fingerstick 27.3 SEC (11.7-14.9)
== END 2023-01-19 18:00 | disposition home or self-care (01) ==
LOC: LAB 10:13
PROVIDERS: PCP Nurse Practitioner Family; Referring Provider Nurse Practitioner Family; Visit Provider Nurse Practitioner Family
DX: I48.91 Unspecified atrial fibrillation (principal)
CPT/HCPCS: 36416; 85610

== ENCOUNTER 2023-02-17 09:31 | Outpatient (RCR) | payer MEDICARE, SELFPAY ==
[2023-01-20 00:17] VITALS: BMI 28.8
[2023-02-17 09:47] LABS: INR Fingerstick 2.6; Prothrombin Time Fingerstick 28.5 SEC (11.7-14.9)
== END 2023-02-17 18:00 | disposition home or self-care (01) ==
LOC: LAB 09:31
PROVIDERS: PCP Nurse Practitioner Family; Referring Provider Physician Assistant Medical; Visit Provider Physician Assistant Medical
DX: I48.11 Longstanding persistent atrial fibrillation
CPT/HCPCS: 36416; 85610

== ENCOUNTER 2023-04-13 09:11 | Outpatient (RCR) | payer MEDICARE, SELFPAY ==
[2023-02-19 22:09] VITALS: BMI 28.8
[2023-04-13 09:19] LABS: INR Fingerstick 2.4; Prothrombin Time Fingerstick 25.7 SEC (11.7-14.9)
== END 2023-04-13 18:00 | disposition home or self-care (01) ==
LOC: LAB 09:11
PROVIDERS: PCP Nurse Practitioner Family; Referring Provider Physician Assistant Medical; Visit Provider Physician Assistant Medical
DX: I48.91 Unspecified atrial fibrillation (principal)
CPT/HCPCS: 36416; 85610

== ENCOUNTER 2023-05-18 10:44 | Outpatient (RCR) | payer MEDICARE, SELFPAY ==
[2023-04-21 23:24] VITALS: BMI 28.8
[2023-05-18 10:54] LABS: INR Fingerstick 2.1; Prothrombin Time Fingerstick 23.3 SEC (11.7-14.9)
== END 2023-05-21 18:00 | disposition home or self-care (01) ==
LOC: LAB 10:44
PROVIDERS: PCP Nurse Practitioner Family; Referring Provider Physician Assistant Medical; Visit Provider Physician Assistant Medical
DX: I48.11 Longstanding persistent atrial fibrillation
CPT/HCPCS: 36416; 85610

== ENCOUNTER 2023-06-18 09:53 | Outpatient (RCR) | payer MEDICARE, SELFPAY ==
[2023-05-22 03:09] VITALS: BMI 28.8
[2023-06-18 10:06] LABS: INR Fingerstick 2.4; Prothrombin Time Fingerstick 25.7 SEC (11.7-14.9)
== END 2023-06-21 18:00 | disposition home or self-care (01) ==
LOC: LAB 09:53
PROVIDERS: PCP Nurse Practitioner Family; Referring Provider Physician Assistant Medical; Visit Provider Physician Assistant Medical
DX: I48.11 Longstanding persistent atrial fibrillation
CPT/HCPCS: 36416; 85610

== ENCOUNTER 2023-07-27 17:01 | Inpatient (IN) | payer MEDICARE, SELFPAY ==
[2023-07-27 17:02] VITALS: BP 191/90; PULSE 86; RESP 18; TEMP 37.1; O2SAT 99
--- NOTE | 2023-07-27 17:20 | US_ITS ---
ACR Level 3 findings have been noted. An addendum which confirms receipt of the report will follow. STUDY: VENOUS DOPPLER ULTRASOUND - RIGHT LOWER EXTREMITY REASON FOR EXAM: Male, 82 years old. PAIN TECHNIQUE: Ultrasound evaluation of the deep vein system to include abdul-scale imaging and compression was performed. Abdul-scale imaging and Doppler sonographic evaluation, including duplex spectral analysis and qualitative color flow sonography, was performed. COMPARISON: None. FINDINGS: Common Femoral Vein: Normal compression, spontaneity and augmentation. Normal color Doppler. Common Femoral Vein/Greater Saphenous Junction: Normal compression, spontaneity and augmentation. Normal color Doppler. Deep Femoral Vein: Normal compression, spontaneity and augmentation. Normal color Doppler. Femoral Proximal: Normal compression, spontaneity and augmentation. Normal color Doppler. Femoral Middle: Normal compression, spontaneity and augmentation. Normal color Doppler. Femoral Distal: Normal compression, spontaneity and augmentation. Normal color Doppler. Popliteal Vein: Normal compression, spontaneity and augmentation. Normal color Doppler. Posterior Tibial Vein: Absent compression, absent spontaneous flow and augmentation, internal echoes are seen. Findings are consistent with DVT. Peroneal Vein: Absent compression, absent spontaneous flow and augmentation, internal echoes are seen. Findings are consistent with DVT. Several indeterminate prominent right groin lymph nodes measuring as much as 4.3 cm. US/Venous Duplex Imag/Limited/Uni IMPRESSION: Positive for DVT of the calf veins. The Nonstandard Physician Communication protocol was initiated. Electronically Signed: Martín Willoughby MD at 18:59 EST ,
[2023-07-27 19:30] VITALS: BP 191/90; PULSE 86; RESP 18; O2SAT 99
[2023-07-27 19:47] VITALS: BMI 30.7
--- OUTSIDE RECORDS SUMMARY | 2023-07-27 19:56 | XMS RPT_ITS | CCD ---
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 Name Role Phone DANY MUNOZ Unavailable Unavailable DANY MUNOZ Unavailable Unavailable DANY MUNOZ Unavailable Unavailable DANY MUNOZ Unavailable Unavailable LUIS ENRIQUE ROMERO Unavailable Unavailable DANY MUNOZ Unavailable Unavailable DANY MUNOZ Unavailable Unavailable LUIS ENRIQUE ROMERO Unavailable Unavailable Nirmala Alicia Unavailable Unavailable Efrain Romero Unavailable Unavailable Nirmala Alicia Unavailable Unavailable LUIS ENRIQUE ROMERO MD Primary Care Physician Allergies Allergy Classification Reported Allergen(s) Allergy Type Date of Onset Reaction(s) Facility (6 sources) morphine; Translations: [MORPHINE] Drug Allergy 7 AOF, DROPS BLOOD PRESSURE [facility] Other [facility] Medications Current Medications Medication Drug Class(es) Dates Sig (Normalized) Sig (Original) amLODIPine 5 mg oral tablet (4 sources) Dihydropyridine Calcium Channel Elaina Start: 05-10-20 amLODIPine 5 mg oral tablet Dose : 5 mg = 1 tab(s), Oral, qDay, 0 Refill(s) Start Date: 05/10/18 Status: Ordered atenolol 50 mg oral tablet (4 sources) beta-Adrenergic Elaina Start: 05-10-20 atenolol 50 mg oral tablet Dose : 75 mg = 1.5 tab(s), Oral, qDay, 0 Refill(s) Start Date: 05/10/18 Status: Ordered atorvastatin 10 mg oral tablet (4 sources) HMG-CoA Reductase Inhibitor Start: 08-16-19 atorvastatin 10 mg oral tablet Dose : 10 mg = 1 tab(s), Oral, qDay, # 30 tab(s), 0 Refill(s) Start Date: 08/16/21 Status: Ordered Cholecalciferol (4 sources) Vitamin D Start: 03-27-20 take 1 capsule by mouth twice daily Vitamin D (3) 45 units oral capsule Dose : 50 mcg =, Oral, BID, 0 Refill(s) Start Date: 03/27/14 Status: Ordered Magnesium (4 sources) Start: 08-16-19 Magnesium 250 mg tablet Dose : 500 mg = 2 tab(s), Oral, qDay, 0 Refill(s) Start Date: 08/16/21 Status: Ordered methylPREDNISolone Dosepak 4 mg tablet (4 sources) Start: 08-16-19 methylPREDNISolone Dosepak 4 mg tablet TAKE DIRECTED X 6 DAYS, FINISHED ON 08/21/21 Start Date: 08/16/21 Status: Ordered omeprazole 40 mg delayed release oral capsule (4 sources) Proton Pump Inhibitor Start: 03-23-20 omeprazole 40 mg oral delayed release capsule (NF) Dose : 40 mg = 1 cap(s), Oral, qDayAC, 0 Refill(s) Start Date: 03/23/14 Status: Ordered warfarin sodium 2.5 mg oral tablet (4 sources) Vitamin K Antagonist Start: 03-23-20 Coumadin 2.5 mg oral tablet Dose : 2.5 mg = 1 tab(s), Oral, Daily, 0 Refill(s) Start Date: 03/23/14 Status: Ordered Problems Problem Classification Problem Date Documented Date Episodic/Chronic Cardiac dysrhythmias (2 sources) Chronic atrial fibrillation; Translations: [Chronic atrial fibrillation] Onset: 9 Chronic Disorders of lipid metabolism (4 sources) Hypercholesterolemia 05-10-2018 Chronic Essential hypertension (1 source) Essential (primary) hypertension; Translations: [Essential (primary) hypertension] Onset: 8 Chronic Unclassified (1 source) Unknown / UNK(Unknown) Onset: 9 Results Test Name Value Interpretation Reference Range Facil ity Vital Signs Date Time Vital Sign Value Performing Clinician Norbert saha 08-16-2021 08:45-0500 Body height 172.[address] NABIL PAREDES MD [facility] 08-16-2021 08:45-0500 Body weight 29.51 kg/m2 DR NABIL PAREDES MD [facility] 08-16-2021 08:45-0500 Body weight [address] NABIL PAREDES MD [facility] 08-16-2021 08:45-0500 diastolic 68 mm[Hg] DR NABIL PAREDES MD [facility] 08-16-2021 08:45-0500 Heart rate 70 /min DR NABIL PAREDES MD [facility] 08-16-2021 08:45-0500 systolic 148 mm[Hg] DR NABIL PAREDES MD [facility] Encounters Encounter Date Encounter Type Care Provider Facility Start: 09-06-2021 End: 09-06-[address] NABIL PAREDES MD [facility] Start: 08-27-2021 End: 08-27-[address] NABIL PAREDES MD [facility] Start: 08-16-2021 End: 08-16-[address] NABIL PAREDES MD [facility] Start: 08-16-2021 End: 08-16-[address] NABIL PAREDES MD [facility] Start: 08-03-2018 Ambulatory DANY MUNOZ Facility :[facility] Start: 05-10-2018 Patient encounter procedure Nirmala Alicia [facility] Start: 08-03-2017 End: 08-03-2017 Ambulatory DANY MUNOZ [facility] Procedures Date Procedure Procedure Detail Performing Clinician Start: 05-10-[address] NABIL PAREDES MD Start: 06-22-[address] NABIL PAREDES MD Ankle region structu re (body structure) DR NABIL PAREDES MD Payers Date Payer Category Payer Medicare [id number] 1940 Unknown [id number] Social History Date Type Detail Facility Start: 05-10-2018 Ex-smoker (finding) [facility] Sex Assigned At [facility] Progress note 07-10-2021 Note Date & Type Note Facility 07-10-2021 Note HNO ID: [id number] Author: Dara Contreras APRN.[employer] Service: ? Author Type: Nurse Practitioner Type: Progress Notes Filed: 07/10/2021 10:49 AM Note Text: This note was created using NoteWriter. Subjective Braxton Syed is a 80 year old male presenting with a painless lesion on the inside of his right lower lip for one month. Skin sloughs off and peels intermittently. PMH significant for thrush several months ago. Denies dentures, change in diet. Previously evaluated by dentist who was unable to diagnose or treat the issue. He denies dry mouth or mouth or throat pain. Mouth/Lip Problem This is a new problem. The current episode started more than 1 month ago. The problem occurs constantly. The problem has been gradually worsening (lesion has grown over time). Pertinent negatives include no fatigue, fever, rash, sore throat, swollen glands or visual change. Nothing aggravates the symptoms. He has tried nothing for the symptoms. Review of Systems Constitutional: Negative for fatigue and fever. HENT: Positive for mouth sores. Negative for dental problem, drooling, sore throat and trouble swallowing. Skin: Negative for rash. All other systems reviewed and are negative. Objective BP 132/78 Pulse 79 Temp 36.7 ?C (98.1 ?F) (Tympanic) Resp 18 Wt 91.4 kg (201 lb 9.6 oz) SpO2 89% BMI 30.65 kg/m? PAST MEDICAL HISTORY Diagnosis Date - Atrial fibrillation (HCC) - Calculus of gallbladder without mention of cholecystitis or obstruction - Cancer (HCC) - Carcinoma in situ of prostate Prostate cancer - Carotid stenosis - Hypertension - Other and unspecified hyperlipidemia - Pain management Dr. Mistry - Personal history of colonic polyps PAST SURGICAL HISTORY Procedure Laterality Date - ARTHRP ACETBLR/PROX FEM PROSTC AGRFT/ALGRFT Hip replacement, total,left - ARTHRP ACETBLR/PROX FEM PROSTC AGRFT/ALGRFT Hip replacement, total right - ARTHRP KNE CONDYLEANDPLATU MEDIALANDLAT COMPARTMENTS 2004 Knee replacement, total left - [facility]COPY 04/[facility] - COLONOSCOPY FLX DX W/COLLJ SPEC WHEN PFRMD 10/22/04 Colonoscopy - COLONOSCOPY FLX DX W/COLLJ SPEC WHEN PFRMD 04/19/08 - EGD TRANSORAL BIOPSY SINGLE/MULTIPLE 09/01/05 - LAPS SURG CHOLECYSTECTOMY W/CHOLANGIOGRAPHY 06/07/07 - PAST SURGICAL HISTORY OF 2001 bowel- to remove a polyp and part of the bowel. ALLERGIES Morphine MEDICATIONS warfarin (COUMADIN) 2.5 mg tablet TAKE 1 TABLET BY MOUTH DAILY DIRECTED. amLODIPine (NORVASC) 5 mg tablet TAKE 1 TABLET BY MOUTH ONCE DAILY. warfarin (COUMADIN) 1 mg tablet Take 1 tablet by mouth once daily. Or as directed warfarin (COUMADIN) 4 mg tablet 2 mg Mon/Thu/Fri and 2.5 mg other days magnesium oxide (MAG-OXIDE) 400 mg tablet Take 1 tablet by mouth twice daily. Calcium-Cholecalciferol, D3, 500-125 mg-unit tab Take by mouth once daily. atenolol 50 mg tablet Take 1.5 tablets by mouth once daily. NAPROXEN SODIUM (ALEVE ORAL) Take by mouth. omeprazole(PRILOSEC 20 MG CAP) Take one(1) capsule daily. sildenafil citrate(VIAGRA 100 MG TAB) Take one(1) tablet 30-60 minutes before sexual intercourse as needed. atorvastatin (LIPITOR) 10 mg tablet Take 10 mg by mouth once daily. gabapentin (NEURONTIN) 300 mg capsule Take 300 mg by mouth twice daily. FAMILY HISTORY Problem Relation Age of Onset - None Other Social History Tobacco Use - Smoking status: Former Smoker - Smokeless tobacco: Never Used - Tobacco comment: smoked in 1964 Substance Use Topics - Alcohol use: Yes Comment: 1-2 per day - Drug use: Not on file Physical Exam Vitals reviewed. Constitutional: General: He is not in acute distress. Appearance: Normal appearance. He is not ill-appearing. HENT: Head: Normocephalic and atraumatic. Mouth/Throat: Mouth: Mucous membranes are moist. Oral lesions present. Dentition: Does not have dentures. Dental caries present. No gingival swelling or dental abscesses. Tongue: No lesions. Palate: No mass. Pharynx: Oropharynx is clear. Uvula midline. Tonsils: No tonsillar exudate. Comments: Dental bridge. Musculoskeletal: Cervical back: Normal range of motion and neck supple. No rigidity or tenderness. Lymphadenopathy: Cervical: Cervical adenopathy present. Skin: General: Skin is warm and dry. Neurological: Mental Status: He is alert and oriented to person, place, and time. Mental status is at baseline. Psychiatric: Mood and Affect: Mood normal. Behavior: Behavior normal. Thought Content: Thought content normal. Judgment: Judgment normal. Assessment and Plan ASSESSMENT/PLAN: 1. Lesion of mouth - ICD9: 528.9, ICD10: K13.70 Referral to [facility] for evaluation and possible biopsy tomorrow at [address], student WIG DRESSER TEACHING PROVIDER (Physician/PA/WIG DRESSER) NOTE OF PERSONAL INVOLVEMENT IN CARE: I have personally seen and examined the patient and performed the medical decision-making com (more content not included)... [facility] Progress note 10-08-2020 Note Date & Type Note Facility 10-08-2020 Note HNO ID: [id number] Author: Marcella Dodge Service: ? Author Type: Nurse Practitioner Type: Progress Notes Filed: 10/08/2020 8:48 AM Note Text: Subjective HPI HPI Braxton Syed is a 80 year old male who presents today for CC of tick present on left upper arm for unkown time period. Tick is engorged. BP 124/72 Pulse 74 Temp 36.5 ?C (97.7 ?F) (Tympanic) Resp 16 Wt 87.1 kg (192 lb) SpO2 98% BMI 29.19 kg/m? Social History Tobacco Use - Smoking status: Former Smoker - Smokeless tobacco: Never Used - Tobacco comment: smoked in 1964 Substance Use Topics - Alcohol use: Yes Comment: 1-2 per day - Drug use: Not on file PAST MEDICAL HISTORY Diagnosis Date - Atrial fibrillation (HCC) - Calculus of gallbladder without mention of cholecystitis or obstruction - Cancer (HCC) - Carcinoma in situ of prostate Prostate cancer - Carotid stenosis - Hypertension - Other and unspecified hyperlipidemia - Pain management Dr. Mistry - Personal history of colonic polyps I have confirmed and edited as necessary, the [facility] Review of Systems Constitutional: Negative for chills and fever. Musculoskeletal: Negative for joint pain and myalgias. Skin: Negative for itching and rash. Tick present in left upper arm All other systems reviewed and are negative. Objective Physical Exam Vitals and nursing note reviewed. Pulmonary: Effort: Pulmonary effort is normal. Musculoskeletal: Right upper arm: Normal. Left upper arm: Normal. Arms: Skin: General: Skin is warm and dry. Neurological: Mental Status: He is alert and oriented to person, place, and time. Psychiatric: Mood and Affect: Affect normal. ASSESSMENT/PLAN: 1. Tick bite with subsequent removal of tick - ICD9: 919.4, E906.4, ICD10: W57.XXXA Doxycycline as ordered - Keep the area clean and dry -Clean with soap and water . -Observe area for signs of infection: redness, warmth, foul odor, drainage or increase in discomfort. Call you primary care physician if this occurs. Information from up to date on Tick/Lymes given -Call your primary care physician's office for a follow up appointment as needed Diagnosis and treatment plan were discussed and questions were answered to the patient's satisfaction. Pt acknowledged understanding of concepts and follow up plan. Specific signs and symptoms that would indicate the need for higher level of care were discussed in detail warranting prompt ER evaluation. Marcella Dodge APRN.[facility] Evaluation + Plan note Note Date & Type Note Facility Evaluation + Plan note Future Appointments [facility] Evaluation + Plan note Radiology Note Date & Type Note Facility Evaluation + Plan note Future Appointments Appointment Date:09/06/2021 01:00:00 PM Scheduled Provider: Location:XRAY Appointment Type:US Extremity Non-Vascular Right Future Scheduled TestsUS Extremity Non-Vascular Right 09/06/21 [facility] Hospital course Narrative Note Date & Type Note Facility Hospital course Narrative No data available for this section [facility] Hospital Discharge instructions Note Date & Type Note Facility Hospital Discharge instructions No data available for this section [facility] Summary Purpose Family History No Family History Records FoundNo Family History Records FoundNo Family History Records FoundNo Family History Records FoundNo Family History Records Found Advance Directives No Advanced Directives Records FoundNo Advanced Directives Records FoundNo Advanced Directives Records FoundNo Advanced Directives Records FoundNo Advanced Directives Records Found Additional Source Comments (unrecognized sect ion and content) No Status Records FoundNo Status Records FoundNo Status Records FoundNo Status Records FoundNo Status Records Found INFORMATION SOURCE (unrecogn ized section and content) DATE CREATED AUTHOR AUTHOR'S ORGANIZ ATION 12/14/2017 [facility] DATE CREATED AUTHOR AUTHOR'S ORGANIZ ATION 05/31/2018 [facility] DATE CREATED AUTHOR AUTHOR'S ORGANIZ ATION 08/03/2021 [facility] DATE CREATED AUTHOR AUTHOR'S ORGANIZ ATION 09/20/2021 [facility] ([place]) FOR RECORDS PERTAINING TO PATIENTS WHO ARE OR HAVE BEEN ENROLLED IN A CHEMICAL DEPENDENCY/SUBSTANCEABUSE PROGRAM, SOME INFORMATION MAY BE OMITTED. This clinical summary was aggregated from multiple sources. Caution should be exercised in using it in the provision of clinical care. This summary normalizes information from multiple sources, and as a consequence, information in this document may materially change the coding, format and clinical context of patient data. In addition, data may be omitted in some cases. CLINICAL DECISIONS SHOULD BE BASED ON THE PRIMARY CLINICAL RECORDS. [employer] [facility]. provides no warranty or guarantee of the accuracy or completeness of information in this document.
[2023-07-27] MEDS: oxyCODONE 5 MG Tablet PO (20:09)
[2023-07-27 20:25] LABS: Anion Gap 10 (5-15); BUN 12 mg/dL (7-18); BUN/Creat Ratio 16.5 RATIO (10-20); Calcium,Total 9.5 mg/dL (8.5-10.1); Chloride 105 mmol/L (98-107); Creatinine, Serum 0.73 mg/dL (0.70-1.30); EST Glomerular Filtration Rate 109 mL/min (>60); Est Glom Filt Rate - Afr Amer 132 mL/min (>60); Estimated Creatinine Clearance 74.48 ml/min; Glucose 135 mg/dL (74-106); Potassium 3.7 mmol/L (3.5-5.1); Sodium Level 136 mmol/L (136-145)
[2023-07-27 20:26] LABS: Absolute Lymphocyte Count 0.31 X10^3/uL (0.83-4.51); Absolute Neutrophil Count 7.3 X10^3/uL (2.0-7.7); Basophil# 0.02 X10^3/uL; Basophil% 0.2 % (0-1); Eosinophil# 0.02 X10^3/uL; Eosinophils% 0.2 % (0-5); Hematocrit 44.3 % (40-54); Hemoglobin 14.7 g/dL (13.0-16.5); Lymphocyte # 0.31 X10^3/ul (0.83-4.51); Lymphocyte % 3.8 % (19-41); Mean Corp Hgb Conc 33.2 g/dL (32-36); Mean Corpuscular Hgb 30.1 pg (27.0-32.0); Mean Corpuscular Volume 90.6 fL (80-94); Mean Platelet Vol. 9.4 fl (6.2-12.0); Monocyte# 0.37 X10^3/uL; Monocyte% 4.6 % (0-10); NRBC Flagged by Analyzer 0 % (0-5); Neutrophil # 7.32 X10^3/uL (2.7-7.7); Neutrophil % 90.8 % (47-70); POSITIVE DIFFERENTIAL YES; Platelet Count 194 K/mm3 (150-450); RBC Distribution Width CV 13.2 % (11.6-14.6); RBC Distribution Width SD 43.4 fl (35.1-43.9); Red Blood Count 4.89 M/mm3 (4.6-6.2); White Blood Count 8.1 K/mm3 (4.4-11.0)
[2023-07-27 20:54] LABS: International Normalized Ratio 1.1; Prothrombin Time (Protime)PT. 14.6 SECONDS (11.7-14.9)
[2023-07-27 20:55] LABS: Partial Thromboplast Time 25.6 Seconds (24.1-36.2)
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
[2023-07-27] MEDS: HYDROmorphone 1 MG/ML Syringe 0.5 MG IV ×2 (21:36→23:15)
--- NOTE | 2023-07-27 22:07 | CT_ITS ---
ACR Level 3 findings have been noted. An addendum which confirms receipt of the report will follow. INDICATION: Peripheral arterial disease EXAMINATION: CT RIGHT LOWER EXTREMITY WITH CONTRAST TECHNIQUE: Helically acquired images were obtained of the right lower extremity with sagittal and coronal reconstructed images. Individualized dose optimization techniques were used for this CT. IV contrast dosage and agent: 100 mL of Isovue-370. Oral contrast: None. COMPARISON: None. FINDINGS: VISUALIZED PELVIS: Significantly enlarged right inguinal lymph nodes with the largest measuring 2.6 cm in short axis diameter. Fat-containing right inguinal hernia. RIGHT LOWER EXTREMITY: COMMON FEMORAL ARTERY: Occlusion at the origin of the SFA. PROFUNDA FEMORIS: Severe stenosis versus occlusion at the proximal deep femoral artery. FEMORAL ARTERY: No flow. POPLITEAL ARTERY: No flow. ANTERIOR TIBIAL ARTERY: No flow. TIBIOPERONEAL TRUNK: No flow. POSTERIOR TIBIAL ARTERY: No flow. PERONEAL ARTERY: No flow. CT/CTA LWR EXTR W/O & W/DYE IMPRESSION: 1. Occlusion at the origin of the right SFA with no arterial flow in the right lower extremity arteries. 2. Right inguinal lymphadenopathy with the largest lymph node measuring 2.6 cm in short axis diameter. Follow-up is recommended. Electronically Signed: Kelvin Uribe DO at 22:42 EST ,
[2023-07-27 23:05] VITALS: BP 186/77
[2023-07-27] MEDS: Heparin Injection (Vial) 5,000 UNIT/ML VIAL 6000 UNIT IV (23:27)
[2023-07-27] MEDS: HEPARIN/D5w 25,000 UNITS 25,000 UNITS/250 ML IV.SOLN. 12 UNITS CONT INF (23:33)
[2023-07-28] VITALS (26 sets, daily range): BP systolic 109–166; BP diastolic 54–102; PULSE 64–96; RESP 12–24; TEMP 36.3–37.2; O2SAT 92–99; BMI 30.7; BMI 27.9; BMI 28.0
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
--- OUTSIDE RECORDS SUMMARY | 2023-07-28 00:42 | XMS RPT_ITS | CCD ---
Author Name Unknown Address [address] [place] [address] Organization [facility] Care Team Providers Care Senior Product Development Manager Name Role Phone DANY MUNOZ Unavailable Unavailable [...] Drug Allergy 7 AOF, DROPS BLOOD PRESSURE [facility] Other [place] Repository Medications Current Medications Medication Drug Class(es) [...] height 172.[address] NABIL PAREDES MD [facility] 08-16-2021 08:45-0500 Body weight 29.51 kg/m2 DR NABIL PAREDES MD [facility] 08-16-2021 08:45-0500 Body weight [address] NABIL PAREDES MD [facility] 08-16-2021 08:45-0500 diastolic 68 mm[Hg] DR NABIL PAREDES MD [facility] 08-16-2021 08:45-0500 Heart rate 70 /min DR NABIL PAREDES MD [facility] 08-16-2021 08:45-0500 systolic 148 mm[Hg] DR NABIL PAREDES MD [facility] Encounters Encounter Date Encounter Type Care Provider Facility Start: 09-06-2021 End: 09-06-[address] NABIL PAREDES MD [facility] Start: 08-27-2021 End: 08-27-[address] NABIL PAREDES MD [facility] Start: 08-16-2021 End: 08-16-[address] NABIL PAREDES MD [facility] Start: 08-16-2021 End: 08-16-[address] NABIL PAREDES MD [facility] Start: 08-03-2018 Ambulatory DANY MUNOZ Facility :[facility] Start: 05-10-2018 Patient encounter procedure Nirmala Alicia [facility] Internal Med Start: 08-03-2017 End: 08-03-2017 Ambulatory DANY MUNOZ [facility] Procedures Date Procedure Procedure Detail Performing Clinician Start: 05-10-[address] NABIL PAREDES MD Start: 06-22-[address] NABIL PAREDES MD Ankle region structu re (body structure) DR NABIL PAREDES MD Payers Date Payer Category Payer Medicare [id number] 1940 Unknown [id number] Social History Date Type Detail Facility Start: 05-10-2018 Ex-smoker (finding) [facility] Sex Assigned At [facility] Progress note 07-10-2021 Note Date & Type Note Facility 07-10-2021 Note HNO ID: [id number] Author: Dara Contreras APRN.SUPERVISOR MOLD YARD Service: ? Author Type: Nurse Practitioner Type: [...] Knee replacement, total left - [facility]ON[facility] FLX DX W/COLLJ SPEC [...] - ICD9: 528.9, ICD10: K13.70 Referral to [facility] for evaluation and possible biopsy tomorrow at 1500 Jacinto Vazquez, student MERCHANDISE PLANNER TEACHING PROVIDER (Physician/PA/MERCHANDISE PLANNER) NOTE OF PERSONAL INVOLVEMENT IN CARE: I have personally seen and examined the patient and performed the medical decision-making com (more content not included)... [facility] Progress note 10-08-2020 Note Date & Type Note Facility 10-08-2020 Note HNO ID: [id number] Author: Marcella Dodge Service: ? Author Type: [...] have confirmed and edited as necessary, the [facility] Review of Systems Constitutional: Negative for chills [...] detail warranting prompt ER evaluation. Marcella Dodge APRN.[facility] Evaluation + Plan note Note Date & Type Note Facility Evaluation + Plan note Future Appointments [facility] Evaluation + Plan note Radiology Note Date & Type Note Facility Evaluation + Plan note Future Appointments Appointment Date:09/06/2021 01:00:00 PM Scheduled Provider: Location:XRAY Appointment Type:US Extremity Non-Vascular Right Future Scheduled TestsUS Extremity Non-Vascular Right 09/06/21 [facility] Hospital course Narrative Note Date & Type Note Facility Hospital course Narrative No data available for this section [facility] Hospital Discharge instructions Note Date & Type Note Facility Hospital Discharge instructions No data available for this section [facility] Summary Purpose Family History No Family History [...] DATE CREATED AUTHOR AUTHOR'S ORGANIZ ATION 12/14/2017 [facility] DATE CREATED AUTHOR AUTHOR'S ORGANIZ ATION 05/31/2018 [facility] DATE CREATED AUTHOR AUTHOR'S ORGANIZ ATION 08/03/2021 [facility] DATE CREATED AUTHOR AUTHOR'S ORGANIZ ATION 09/20/2021 [facility] ([place]) FOR RECORDS PERTAINING TO [...] BE BASED ON THE PRIMARY CLINICAL RECORDS. [employer] [facility]. provides no warranty or guarantee of the accuracy or completeness of information in this document.
--- OUTSIDE RECORDS SUMMARY | 2023-07-28 01:02 | XMS RPT_ITS | CCD ---
Author Name Unknown Address [address] [place] [address] Organization [facility] Care Team Providers Care Free Lance Artist Name Role Phone DANY MUNOZ Unavailable Unavailable DANY MUNOZ Unavailable Unavailable DANY MUNOZ Unavailable Unavailable DANY MUNOZ Unavailable Unavailable LUIS ENRIQUE ROMERO Unavailable Unavailable DANY MUNOZ Unavailable Unavailable DANY MUNOZ Unavailable Unavailable LUIS ENRIQUE ROMERO Unavailable Unavailable Nirmala Alicia Unavailable Unavailable Efrain Romero Unavailable Unavailable Nirmala Alicia Unavailable Unavailable LUIS ENRIQUE ROMERO MD Primary Care Physician [phone] Allergies Allergy Classification Reported Allergen(s) Allergy Type Date of Onset Reaction(s) Facility (6 sources) morphine; Translations: [MORPHINE] Drug Allergy 7 AOF, DROPS BLOOD PRESSURE [facility] Other [place] Repository Medications Current Medications Medication Drug Class(es) [...] height 172.[address] NABIL PAREDES MD [facility] 08-16-2021 08:45-0500 Body weight 29.51 kg/m2 DR NABIL PAREDES MD [facility] 08-16-2021 08:45-0500 Body weight [address] NABIL PAREDES MD [facility] 08-16-2021 08:45-0500 diastolic 68 mm[Hg] DR NABIL PAREDES MD [facility] 08-16-2021 08:45-0500 Heart rate 70 /min DR NABIL PAREDES MD [facility] 08-16-2021 08:45-0500 systolic 148 mm[Hg] DR NABIL PAREDES MD [facility] Encounters Encounter Date Encounter Type Care Provider Facility Start: 09-06-2021 End: 09-06-[address] NABIL PAREDES MD [facility] Start: 08-27-2021 End: 08-27-[address] NABIL PAREDES MD [facility] Start: 08-16-2021 End: 08-16-[address] NABIL PAREDES MD [facility] Start: 08-16-2021 End: 08-16-[address] NABIL PAREDES MD [facility] Start: 08-03-2018 Ambulatory DANY MUNOZ Facility :[facility] Start: 05-10-2018 Patient encounter procedure Nirmala Alicia [facility] Internal Med Start: 08-03-2017 End: 08-03-[address] [facility] Procedures Date Procedure Procedure Detail Performing Clinician Start: 05-10-[address] NABIL PAREDES MD Start: 06-22-[address] NABIL PAREDES MD Ankle region structu re (body structure) DR NABIL PAREDES MD Payers Date Payer Category Payer Medicare [id number] 1940 Unknown [id number] Social History Date Type Detail Facility Start: 05-10-2018 Ex-smoker (finding) [facility] Sex Assigned At [facility] Progress note 07-10-2021 Note Date & Type Note Facility 07-10-2021 Note HNO ID: [id number] Author: Dara Contreras APRN.FRUIT I FARMWORKER Service: ? Author Type: Nurse Practitioner Type: [...] Knee replacement, total left - [facility] FLX DX W/COLLJ SPEC [...] - ICD9: 528.9, ICD10: K13.70 Referral to [facility] for evaluation and possible biopsy tomorrow at 1500 Jacinto Vazquez, student COMMUNICATIONS WRITER TEACHING PROVIDER (Physician/PA/COMMUNICATIONS WRITER) NOTE OF PERSONAL INVOLVEMENT IN CARE: I have personally seen and examined the patient and performed the medical decision-making com (more content not included)... [facility] Progress note 10-08-2020 Note Date & Type Note Facility 10-08-2020 Note HNO ID: [id number] Author: Marcella Dodge Service: ? Author Type: [...] have confirmed and edited as necessary, the [facility] Review of Systems Constitutional: Negative for [...] detail warranting prompt ER evaluation. Marcella Dodge APRN.[facility] Evaluation + Plan note Note Date & Type Note Facility Evaluation + Plan note Future Appointments [facility] Evaluation + Plan note Radiology Note Date & Type Note Facility Evaluation + Plan note Future Appointments Appointment Date:09/06/2021 01:00:00 PM Scheduled Provider: Location:XRAY Appointment Type:US Extremity Non-Vascular Right Future Scheduled TestsUS Extremity Non-Vascular Right 09/06/21 [facility] Hospital course Narrative Note Date & Type Note Facility Hospital course Narrative No data available for this section [facility] Hospital Discharge instructions Note Date & Type Note Facility Hospital Discharge instructions No data available for this section [facility] Summary Purpose Family History No Family [...] DATE CREATED AUTHOR AUTHOR'S ORGANIZ ATION 12/14/2017 [facility] DATE CREATED AUTHOR AUTHOR'S ORGANIZ ATION 05/31/2018 [facility] DATE CREATED AUTHOR AUTHOR'S ORGANIZ ATION 08/03/2021 [facility] DATE CREATED AUTHOR AUTHOR'S ORGANIZ ATION 09/20/2021 [facility] ([place]) FOR RECORDS PERTAINING TO [...] BE BASED ON THE PRIMARY CLINICAL RECORDS. [employer] [facility]. provides no warranty or guarantee of the accuracy or completeness of information in this document.
--- NOTE | 2023-07-28 02:20 | THRO_PTH ---
PATHOLOGY RESULTS PATIENT: ANNMARIE STAPLES LOC: ICU U#:[id number] AGE/SX: 82/M ROOM: [place] [address] RE07/28/[address]: Dr. Jose Blanco MD : 1940 BED: 1 DIS: 07/29/2023 SPEC #: [id number] RECD: 07/28/23 09:40 STATUS: RUDOLPH RERa #: [id number] [place]: 07/28/23 02:[address]: Jose Blanco DEPT: SURGICAL PATHOLOGY RECD BY: Jolanta Zarco ENTERED: 07/28/23 10:18 SP TYPE: THROMBUS Tissues: BLOOD CLOT, NOS Procedures: Surgery Specimen Level III HEADER OPERATION: Right lower extremity embolectomy, fasciotomy PRE-OP DIAGNOSIS: Arterial occlusion lower extremity TISSUE SUBMITTED: Right femoral thrombus MICROSCOPIC DIAGNOSIS Right femoral thrombus, removal: Fragments of organizing blood clot. AM:kelley 07/29/2023 MICROSCOPIC DESCRIPTION Slides are reviewed. GROSS DESCRIPTION Received in fixative is one container labeled with the patient's name and designated right femoral thrombus. The specimen consists of an elongated piece of blood clot measuring 32.0 cm in length and 0.3 to 0.6 cm in diameter. Also present in the container are multiple fragments of blood clot measuring in aggregate 2.5 x 2.0 x 0.7 cm. Divisional Human Resources Director tissue is submitted in one cassette. / SJ:kelley 07/28/2023 TC:5 CPT: [id number]
[2023-07-28] MEDS: Cefazolin 2 GM in 0.9% Normal Saline (100mL Bag) 100 ML IV (02:27)
[2023-07-28] MEDS: Heparin Injection (Vial) 5,000 UNIT/ML VIAL 5000 UNIT (04:09)
--- NOTE | 2023-07-28 04:12 | OP.PCM_ITS ---
Report of Operation Date of Procedure: 07/28/23 Pre-Operative Diagnosis: acute right lower extremity ischemia, embolization Post-Operative Diagnosis: same Surgery/Procedure Performed:: right lower extremity embolectomy, fasciotomy x 4 Description of Surgical Findings:: subacute thrombus common femoral, acute thrombus SFA/popliteal biphasic DP/PT Surgeon: Jose Blanco Type of Anesthesia: General Specimen's removed: thrombus Estimated Blood Loss (mL): 25 Description of Procedure: HPI: Patient is an 82-year-old male with chronic atrial fibrillation on Coumadin who recently had a window in his anticoagulation in order to undergo spine surgery. He has reinitiated his Coumadin dosing however is still not yet therapeutic. He presented with abrupt onset of right lower extremity severe pain pallor using subjectively cool sensation. CT scan revealed abrupt occlusion of the common femoral bifurcation with some antegrade flow into the profunda but total occlusion of the SFA popliteal. There was no reconstitution at the vessels beyond the occlusion in the distal lower leg. He is taken now emergently for embolectomy. Given the duration of ischemia and how profoundly ischemic he was plan was for fasciotomies as well. Description of procedure: Upon obtaining form consent and verification correct patient procedure site patient was taken the operating where he was placed under general anesthesia. He was then positioned prepped and draped in usual sterile fashion and timeout was performed. Oblique incision was made over the common femoral artery above electrocautery to dissect down through subcutaneous tissue. Self-retaining retractors were put in position and further dissection carried down to the femoral sheath. Self-retaining tractor then moved deeper into the wound and the femoral sheath incised vertically exposing the common femoral artery. Sharp dissection used dissect free proximally up to a point which soft and able to be clamped. A running was then used to place a vessel at this location. Patient was then bolused with heparin while distal dissection was carried down to the SFA and profunda origins. A right angle used to place a vessel loop individually on each of these vessels. Vessels then occluded with Vesseloops and a transverse arteriotomy created with 11 blade and extended with Tinajero scissors. There is subacute thrombus within the distal common femoral artery which was extracted with forceps and sent for specimen. After removal there was brisk backbleeding from the profunda. A 3 Mark was then passed down the superficial femoral artery down to the length of approximately 60 cm and then withdrawn for multiple passes with more acute appearing thrombus withdrawn. The 3 Mark balloon popped on more than 1 Mark likely due to calcification within the vessel. A 4 Mark which has a thicker balloon material was then advanced again for 60 cm inflated withdrawn with no further thrombus returned and now brisk backbleeding from the SFA. The SFA was then flushed with heparinized saline and then occluded with a vessel loop. The Fo garty was then passed down the profunda with no thrombus returned so the vessel was flushed heparinized saline. The arteriotomy was then closed with 5-0 Prolene transversely in running fashion and prior to completing suture line the vessels were backbled and the lumen flushed heparinized saline. After completing suture line clamps removed and satisfactory stasis was noted. There is a palpable pulse in the common femoral artery and onto the SFA and profunda origins with normal Doppler signals in all vessels. Floseal topical hemostatic was then applied and attention turned to the fasciotomies. A longitudinal incision was made along the lateral aspect of the lower leg and the midpoint between the tibia and the fibula. Bovie was cut was then used as dissect down to the fascia and the fascia incised longitudinally and extended with Metzenbaum scissors. Muscle of the lateral compartment was pink viable and reactive the Bovie with some moderate early edema. Next the fascia anterior to the septum and the anterior compartment was incised with the Bovie and extended with Metzenbaum scissors and again the anterior compartment muscle was viable and reactive with some moderate edema. It was then packed with a damp lap sponge and the attention turned to the medial incision. Longitudinal incision was made 2 fingerbreadths medial to the tibia and both electrocautery was dissect down through subcutaneous tissue to level the fascia. The fascia was then incised releasing the superficial posterior compartment. The gastrocnemius and soleus muscles both were viable and healthy appearing and reactive to Bovie. Next Bovie was used to detach the insertion of the soleus into the posterior aspect of the tibia releasing the deep posterior compartment. There was not much significant edema in the muscles of the posterior compartments. The anterior tibial, posterior tibial, peroneal artery was then evaluated Doppler and found to be patent with low resistance signal. Likewise the popliteal artery was patent with low resistance signal and there were dopplerable posterior tibial and anterior tibial signals in the foot. The foot was now pink with normal capillary refill. Given that there was some early edema the skin was reapproximated loosely with sinai and the fasciotomy incisions. The femoral incision was then closed with 2-0 Vicryl followed by 3-0 Vicryl, 4 Monocryl and Dermabond for the skin. A Prevena wound VAC was then applied to the groin incision and the patient was awakened anesthesia and taken to the intensive care unit for hemodynamic and vascular monitoring.
[2023-07-28 04:51] LABS: Absolute Neutrophil Count 7.1 X10^3/uL (2.0-7.7); Basophil# 0.02 X10^3/uL; Basophil% 0.2 % (0-1); Eosinophil# 0.01 X10^3/uL; Eosinophils% 0.1 % (0-5); Hematocrit 39.9 % (40-54); Hemoglobin 13.4 g/dL (13.0-16.5); Lymphocyte % 4.9 % (19-41); Mean Corp Hgb Conc 33.6 g/dL (32-36); Mean Corpuscular Hgb 30.2 pg (27.0-32.0); Mean Corpuscular Volume 89.9 fL (80-94); Mean Platelet Vol. 9.2 fl (6.2-12.0); Monocyte# 0.62 X10^3/uL; Monocyte% 7.6 % (0-10); NRBC Flagged by Analyzer 0 % (0-5); Neutrophil # 7.11 X10^3/uL (2.7-7.7); Neutrophil % 86.8 % (47-70); POSITIVE DIFFERENTIAL YES; Platelet Count 179 K/mm3 (150-450); RBC Distribution Width CV 13.1 % (11.6-14.6); RBC Distribution Width SD 43.2 fl (35.1-43.9); Red Blood Count 4.44 M/mm3 (4.6-6.2); White Blood Count 8.2 K/mm3 (4.4-11.0)
[2023-07-28] MEDS: 0.45% Normal Saline 1,000 ML 75 ML IV ×2 (04:59→17:38)
[2023-07-28] MEDS: HEPARIN/D5w 25,000 UNITS 25,000 UNITS/250 ML IV.SOLN. 6 UNITS CONT INF (05:00)
[2023-07-28] MEDS: Acetaminophen 500 MG Tablet 1000 MG PO ×3 (05:06→21:24)
[2023-07-28] MEDS: 0.9% Saline Lock 10 ML Syringe IV ×2 (05:07→20:16)
--- OUTSIDE RECORDS SUMMARY | 2023-07-28 05:07 | XMS RPT_ITS | CCD ---
Author Name Unknown Address [address] [place] [address] Organization [facility] Care Team Providers Care Household Appliance Mechanic Name Role Phone DANY MUNOZ Unavailable Unavailable DANY MUNOZ Unavailable Unavailable DANY MUNOZ Unavailable Unavailable DANY MUNOZ Unavailable Unavailable LUIS ENRIQUE ROMERO Unavailable Unavailable DANY MUNOZ Unavailable Unavailable DANY MUNOZ Unavailable Unavailable LUIS ENRIQUE ROMERO Unavailable Unavailable Nirmala Alicia Unavailable Unavailable Efrain Romero Unavailable Unavailable Nirmala Alicia Unavailable Unavailable LUIS ENRIQUE ROMERO MD Primary Care Physician [phone] Allergies Allergy Classification Reported Allergen(s) Allergy Type Date of Onset Reaction(s) Facility (6 sources) morphine; Translations: [MORPHINE] Drug Allergy 7 AOF, DROPS BLOOD PRESSURE [facility] Other [place] Repository Medications Current Medications Medication Drug Class(es) [...] height 172.[address] NABIL PAREDES MD [facility] 08-16-2021 08:45-0500 Body weight 29.51 kg/m2 DR NABIL PAREDES MD [facility] 08-16-2021 08:45-0500 Body weight [address] NABIL PAREDES MD [facility] 08-16-2021 08:45-0500 diastolic 68 mm[Hg] DR NABIL PAREDES MD [facility] 08-16-2021 08:45-0500 Heart rate 70 /min DR NABIL PAREDES MD [facility] 08-16-2021 08:45-0500 systolic 148 mm[Hg] DR NABIL PAREDES MD [facility] Encounters Encounter Date Encounter Type Care Provider Facility Start: 09-06-2021 End: 09-06-[address] NABIL PAREDES MD [facility] Start: 08-27-2021 End: 08-27-[address] NABIL PAREDES MD [facility] Start: 08-16-2021 End: 08-16-[address] NABIL PAREDES MD [facility] Start: 08-16-2021 End: 08-16-[address] NABIL PAREDES MD [facility] Start: 08-03-2018 Ambulatory DANY MUNOZ Facility :[facility] Start: 05-10-2018 Patient encounter procedure Nirmala Alicia [facility] Internal Med Start: 08-03-2017 End: 08-03-2017 Ambulatory DANY MUNOZ [facility] Procedures Date Procedure Procedure Detail Performing Clinician Start: 05-10-[address] NABIL PAREDES MD Start: 06-22-[address] NABIL PAREDES MD Ankle region structu re (body structure) DR NABIL PAREDES MD Payers Date Payer Category Payer Medicare [id number] 1940 Unknown [id number] Social History Date Type Detail Facility Start: 05-10-2018 Ex-smoker (finding) [facility] Sex Assigned At [facility] Progress note 07-10-2021 Note Date & Type Note Facility 07-10-2021 Note HNO ID: [id number] Author: Dara Contreras APRN.DREDGE PIPE OPERATOR Service: ? Author Type: Nurse Practitioner Type: [...] Knee replacement, total left - [facility] FLX DX W/COLLJ [...] - ICD9: 528.9, ICD10: K13.70 Referral to [facility] for evaluation and possible biopsy tomorrow at 1500 Jacinto Vazquez, student BATTERYMAN TEACHING PROVIDER (Physician/PA/BATTERYMAN) NOTE OF PERSONAL INVOLVEMENT IN CARE: I have personally seen and examined the patient and performed the medical decision-making com (more content not included)... [facility] Progress note 10-08-2020 Note Date & Type Note Facility 10-08-2020 Note HNO ID: [id number] Author: Marcella Dodge Service: ? Author Type: [...] have confirmed and edited as necessary, the [facility] Review of Systems Constitutional: Negative [...] detail warranting prompt ER evaluation. Marcella Dodge APRN.[facility] Evaluation + Plan note Note Date & Type Note Facility Evaluation + Plan note Future Appointments [facility] Evaluation + Plan note Radiology Note Date & Type Note Facility Evaluation + Plan note Future Appointments Appointment Date:09/06/2021 01:00:00 PM Scheduled Provider: Location:XRAY Appointment Type:US Extremity Non-Vascular Right Future Scheduled TestsUS Extremity Non-Vascular Right 09/06/21 [facility] Hospital course Narrative Note Date & Type Note Facility Hospital course Narrative No data available for this section [facility] Hospital Discharge instructions Note Date & Type Note Facility Hospital Discharge instructions No data available for this section [facility] Summary Purpose Family History No Family History [...] DATE CREATED AUTHOR AUTHOR'S ORGANIZ ATION 12/14/2017 [facility] DATE CREATED AUTHOR AUTHOR'S ORGANIZ ATION 05/31/2018 [facility] DATE CREATED AUTHOR AUTHOR'S ORGANIZ ATION 08/03/2021 [facility] DATE CREATED AUTHOR AUTHOR'S ORGANIZ ATION 09/20/2021 [facility] ([place]) FOR RECORDS PERTAINING [...] BE BASED ON THE PRIMARY CLINICAL RECORDS. [facility]. provides no warranty or guarantee of the accuracy or completeness of information in this document.
[2023-07-28 05:08] LABS: Anion Gap 6 (5-15); BUN 10 mg/dL (7-18); BUN/Creat Ratio 13.9 RATIO (10-20); Calcium,Total 8.6 mg/dL (8.5-10.1); Chloride 101 mmol/L (98-107); Creatinine, Serum 0.72 mg/dL (0.70-1.30); EST Glomerular Filtration Rate 111 mL/min (>60); Est Glom Filt Rate - Afr Amer 134 mL/min (>60); Estimated Creatinine Clearance 75.94 ml/min; Glucose 132 mg/dL (74-106); Magnesium 1.8 mg/dL (1.6-2.6); Phosphorus 3.3 mg/dL (2.5-4.9); Potassium 3.8 mmol/L (3.5-5.1); Sodium Level 131 mmol/L (136-145)
[2023-07-28] MEDS: Cefazolin 1 GM/50 ML BAG IV ×2 (10:13→17:36)
[2023-07-28] MEDS: Magnesium Chloride 64 MG Delay Rel.Tablet 128 MG PO (10:16)
[2023-07-28] MEDS: Atenolol 25 MG Tablet 75 MG PO (10:16)
[2023-07-28] MEDS: Pantoprazole Sodium 20 MG Tablet PO (10:16)
[2023-07-28] MEDS: Cholecalciferol (VIT D3) 25 MCG TABLET (1,000 UNITS) 50 MCG PO ×2 (10:17→21:25)
--- NOTE | 2023-07-28 10:37 | CASEMGMT ---
CELIA GARRETT Assessment: Face to Face with pt for initial transition planning/care coordination assessment. RN TAMI introduced self and role at [facility], pt voices understanding and consents to assessment. Pt is A&O x4 and answers all questions appropriately at this time. Pt sitting up in bed with at bedside. Care providers, pharmacy, and demographics verified/updated. Admitting Dx: RLE acute ischemia PCP:Richardson Specialists:Jose, ortho at [facility]; Rebecca, cardio; S[facility], eyes; [facility]acy:[facility] Insurance:[employer] [facility] Prescription Benefit: yes LNOK:Nathaly Syed, ; Lisa Abdul, sister Living Arrangements: Pt lives with in a two story home with 1 step to enter. Pt reports he is I in ADL's and denies concerns at home. Transportation: Pt drives self and denies concerns with transportation. DME:shower chair, walk in shower with built in seat, w/c, crutches, walker, BSC- Pt using walker currently HHC/SNF:Denies hx of Pt states no concerns with going home at time of dc. Pt had back surgery with a week ago. He states his follow up appt is on Thursday and he is supposed to start therapy then. Pt shows CELIA GARRETT Prevena vac handout from surgery this morning. Pt states no further concerns/needs. CM to follow. Advised pt to ask CM if any further question/concerns/needs arise, voices understanding. Pt Goal:Home Plan:Home, follow for any needs post surgical procedure
[2023-07-28 13:36] LABS: Partial Thromboplast Time 37.7 Seconds (24.1-36.2)
[2023-07-28] MEDS: HEPARIN/D5w 25,000 UNITS 25,000 UNITS/250 ML IV.SOLN. 12 UNITS CONT INF (14:10)
[2023-07-28] MEDS: Atorvastatin Calcium 10 MG Tablet PO (21:24)
[2023-07-28] MEDS: Heparin Injection (Vial) 5,000 UNIT/ML VIAL IV (21:25)
[2023-07-29] VITALS (19 sets, daily range): BP systolic 96–148; BP diastolic 63–112; PULSE 74–96; RESP 14–23; TEMP 36.4–36.8; O2SAT 93–100; BMI 27.7
[2023-07-29 03:53] LABS: Partial Thromboplast Time 120.9 Seconds (24.1-36.2)
[2023-07-29] MEDS: Acetaminophen 500 MG Tablet 1000 MG PO ×2 (05:44→14:49)
[2023-07-29] MEDS: 0.9% Saline Lock 10 ML Syringe IV ×2 (05:44→10:35)
[2023-07-29] MEDS: 0.45% Normal Saline 1,000 ML 75 ML IV (06:16)
--- NOTE | 2023-07-29 09:20 | CASEMGMT ---
Addendum entered by Rayne Malik 07/29/23 16:07: TC to [facility] Retail pharmacy, cost of lovenox is $44. ICU private secretary notified that pt is ready for dc from [facility] and that pt has obtained the hospital bed on own. Addendum entered by Rayne Malik 07/29/23 16:00: When CELIA GARRETT spoke with PA, she would like therapy to be recommended by back surgeon. This was not ordered for HHC. Addendum entered by Rayne Malik 07/29/23 15:58: Received tc back from [facility], they will accept pt for SOC tomorrow. Pt and updated. Addendum entered by Rayne Malik 07/29/23 15:28: CELIA GARRETT provided pt with a list of HHC agencies created by dc security assistant. Pt chose 1. [facility] 2. [facility]. TC to Nicko at [facility], referral made, will await acceptance. Addendum entered by Rayne Malik 07/29/23 14:58: Pt to dc today, spoke with PA with . Pt to dc on lovenox. RN TAMI into pt room, he states he has done lovenox in the past and denies issues with this. Discussed HH with pt, he is agreeable to SN. He states his is renting a hospital bed for at home from [facility]. He states he wants it delivered tomorrow and is aware that they do not take insurance. Addendum entered by Rayne Malik 07/29/23 13:11: Emailed pt private duty list at this time. Original Note: Received tc from pt , she states she is getting wore out from caring for pt. She asks if an aide can be set up to do housekeeping tasks for pt and her to give a break. Discussed HHC with her and what it entails and that pt would certainly qualify for SN due to recent surgeries and med/disease education. She states that she does not feel that a nurse will help her. She only prefers an aide. She states she will wait for any therapy orders from the post op appt next week with the back surgeon. Discussed private duty care with her and she states she would be interested in a list of agencies emailed to her. Her email is [email or web address]. RN CM to send list. Pt denies further needs at this time.
[2023-07-29] MEDS: Cholecalciferol (VIT D3) 25 MCG TABLET (1,000 UNITS) 50 MCG PO (10:34)
[2023-07-29] MEDS: Magnesium Chloride 64 MG Delay Rel.Tablet 128 MG PO (10:35)
[2023-07-29] MEDS: Pantoprazole Sodium 20 MG Tablet PO (10:35)
[2023-07-29] MEDS: Atenolol 25 MG Tablet 75 MG PO (10:35)
[2023-07-29] MEDS: amLODIPine 10 MG Tablet PO (10:35)
--- NOTE | 2023-07-29 11:25 | NURSING ---
Pt's gamble catheter leaking significant amount of urine around balloon, removed
[2023-07-29] MEDS: Heparin Injection (Vial) 5,000 UNIT/ML VIAL IV (11:39)
--- NOTE | 2023-07-29 12:02 | NURSING ---
discontinued Heparin gtt ordered showed still running at 6ml/hr. Heparin gtt actually running at 10ml/hr as shown in active order when this RN arrived.
[2023-07-29 12:16] LABS: Hemoglobin 12.7 g/dL (13.0-16.5)
--- NOTE | 2023-07-29 14:54 | PCM.DC.SUM ---
Providers Date of Admission: 07/28/23 Primary Care Physician: RAFAEL WhiteC Reason For Visit: RIGHT LOWER EXTREMITY ACUTE ISHEMIA Diagnosis Discharge Diagnosis (1) Arterial occlusion, lower extremity: Status: Acute Code(s): I70.209 - Unspecified atherosclerosis of [place] arteries of extremities, unspecified extremity Medications at Discharge Home Medications atenolol 50 mg tablet 75 mg PO DAILY 07/12/15 omeprazole 20 mg capsule,delayed release 20 mg PO DAILY 07/12/15 cholecalciferol (vitamin D3) 50 mcg (2,000 unit) capsule 2,000 unit PO BID 06/11/16 magnesium oxide 400 mg (241.3 mg magnesium) tablet 400 mg PO DAILY 06/11/16 atorvastatin 10 mg tablet 10 mg PO QHS 04/26/19 warfarin 2.5 mg tablet 2.5 mg PO .COMPLEX #90 tabs 06/04/20 amlodipine 10 mg tablet 10 mg PO DAILY 05/14/21 enoxaparin 80 mg/0.8 mL subcutaneous syringe (Lovenox) 80 mg (0.8 mL) subcut Q12H 14 days #22.4 mL 07/29/23 oxycodone 5 mg tablet 5 mg PO Q8H PRN PRN Pain Score 4-10 5 days #15 tabs 07/29/23 Hospital Course Operations - Summary of Care Provided Hospital Course: Bhupendra Syed is an 82-year-old male who presented to the [facility] ER on 07/27/23 with RLE pain. His history was significant for Afib on Coumadin; however, Coumadin had been held for the last 10 days secondary to recent spine surgery. 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 He was taken to the OR in the early hours of 07/28/23 for RLE embolectomy with fasciotomy. He tolerated the procedure very well. He was routinely admitted to the ICU postoperatively for hemodynamic monitoring. He tolerated low dose heparin without issue so was increased to full dose heparin in the afternoon of 07/28. After 24 hours on full dose heparin, still no bleeding complications. His hgb has remained overall stable, 12.7 today. He has been tolerating a full diet and urinating without difficulty. He has been ambulating without difficulty. He reports only mild pain at the incision sites, rest pain from prior to surgery has resolved. He has returned motor function of his R toes. He does still have some paresthesias in the R foot. Otherwise, no complaints. He is medically stable for discharge home. All wound dressings will remain in place for 1 week. He will follow-up in the office in 1 week. He is being discharged on lovenox for bridge back to Coumadin. Physical Exam Const alert, oriented x3 and no apparent distress General Appearance: cooperative and comfortable HEENT normocephalic, head/scalp atraumatic, hearing grossly normal bilaterally, external ears normal and external nose normal Eyes EOMs intact bilaterally General Eye: normal appearance of both eyes Neck General: normal visual inspection and trachea midline Resp normal respiratory effort, normal air movement, no retractions and no use of accessory muscles Effort and Inspection: able to speak in complete sentences; Negative for labored, grunting, stridor, retractions or audible wheezes Cardio regular rate Rhythm: abnormal rhythm irregularly irregular Extremity Extremity Narrative: R groin incision with Prevena vacuum dressing intact, no significant swelling or ecchymosis. No erythema. R lower leg fasciotomy incisions with sinai intact. Minimal oozing noted. Skin edges viable. No ecchymosis, edema. Nontender to palpation except directly over the incision. RLE with some swelling compared to left. Skin no rashes or lesions noted Trauma: no lacerations or abrasions Neuro CN's II-XII intact bilaterally, moves all extremities and no focal motor deficits Speech: speech normal Psych mental status grossly normal Appearance: grossly normal Attitude: calm and engaged Activity / Motor Behavior: appropriate eye contact Speech: normal speech Mood & Affect: euthymic mood Judgement: judgement good Weight / BMI Weight Weight: 187 lb 13.341 oz Body Mass Index (BMI) 27.7 ABG / Lab / Microbiology Data 07/29/23 11:45 07/28/23 04:40 Laboratory: Laboratory Results - last 24 hr 07/28/23 20:00: APTT 54.0 H 07/29/23 03:25: APTT 120.9 H* 07/29/23 10:25: APTT 51.0 H 07/29/23 11:45: Hgb 12.7 L D/C Instructions Discharge Diet: No restrictions Weight Bearing Status: Weight bearing as tolerated Keep extremity elevated above heart level: Right Leg Call your doctor if your incision/area has: Sudden Increased Bleeding, Increased Pain/ Swelling and Foul Smelling Discharge Call your doctor if you observe: Fever of 101 or Higher and Uncontrolled pain Change Dressing in: leave in place till F/U Remove Dressing in: leave in place till F/U Additional Instructions: There is a Prevena vacuum dressing over your right groin incision. Please leave this in place for 1 week until your follow-up appointment. If it alarms and you are not able to get it to stop, you may remove the dressing early as demonstrated. If you have any questions or concerns about this, please contact the office. There are adhesive dressings over the incision on your right lower leg. Please leave these in place for 1 week until your follow-up appointment. If these dressings should fall off, then you may return to a dry dressing with gauze wrap. Please contact the office with any questions or concerns about this. Do not lift greater than 20 pounds for 3 weeks. Otherwise, you may proceed with activity as tolerated. You have been started on Lovenox 80mg to be injected subcutaneously every 12 hours. This has been started to bridge you back to Coumadin and will be continued until your INRs are within range. Please continue your usual dose of Warfarin (Coumadin) 2.5mg daily as well. I have ordered an INR check for Thursday07/31/23, you will need to go to the lab at the hospital to have this test drawn. I have sent a prescription pain medication, oxycodone to your pharmacy should you need it. It should be taken only as needed and as directed for pain, do not combine it with any other prescription pain medications. You may take this in addition to Tylenol as needed. Our office will contact you tomorrow to schedule your follow-up appointment. Our office number is [phone], please reach out with any questions or concerns. Please Follow Up With: Catia Booker PA When: 1 week Meaningful Use Info Meaningful Use Diagnoses (Choose all that apply): VTE VTE Anticoag overlap given w/in hospital stay or rx'd at dc?: Yes Pt receive overlap for 5 days?: Yes Discharge Plan Admission Admit Date/Time: 07/28/23 04:04 Primary Reason for Your Visit: RLE embolectomy Attending Provider: Jose Blanco Primary Care Provider: Damaris Bai Instructions Additional Instructions / Restrictions: There is a Prevena vacuum dressing over your right groin incision. Please leave this in place for 1 week until your follow-up appointment. If it alarms and you are not able to get it to stop, you may remove the dressing early as demonstrated. If you have any questions or concerns about this, please contact the office. There are adhesive dressings over the incision on your right lower leg. Please leave these in place for 1 week until your follow-up appointment. If these dressings should fall off, then you may return to a dry dressing with gauze wrap. Please contact the office with any questions or concerns about this. Do not lift greater than 20 pounds for 3 weeks. Otherwise, you may proceed with activity as tolerated. You have been started on Lovenox 80mg to be injected subcutaneously every 12 hours. This has been started to bridge you back to Coumadin and will be continued until your INRs are within range. Please continue your usual dose of Warfarin (Coumadin) 2.5mg daily as well. I have ordered an INR check for Thursday07/31/23, you will need to go to the lab at the hospital to have this test drawn. I have sent a prescription pain medication, oxycodone to your pharmacy should you need it. It should be taken only as needed and as directed for pain, do not combine it with any other prescription pain medications. You may take this in addition to Tylenol as needed. Our office will contact you tomorrow to schedule your follow-up appointment. Our office number is [phone], please reach out with any questions or concerns. Discharge Orders/Prescriptions Prescriptions: New oxycodone 5 mg Tablet 5 mg PO Q8H PRN PRN (Reason: Pain Score 4-10) 5 Days Qty: 15 0RF enoxaparin [Lovenox] 80 mg/0.8 mL syringe 80 mg subcut Q12H 14 Days Qty: 22.4 0RF Continued atorvastatin 10 mg tablet 10 mg PO QHS amlodipine 10 mg tablet 10 mg PO DAILY omeprazole 20 MG capsule 20 mg PO DAILY atenolol 50 MG tablet 75 mg PO DAILY magnesium oxide 400 MG tablet 400 mg PO DAILY cholecalciferol (vitamin D3) 2,000 UNIT capsule 2,000 unit PO BID warfarin 2.5 mg tablet 2.5 mg PO .COMPLEX Qty: 90 3RF Protocol: Dose Management Condition: Thursday Dose/Route: 2.5 mg Instruction: 1 x 2.5 mg tablet Condition: Thursday Dose/Route: 2.5 mg Instruction: 1 x 2.5 mg tablet Condition: Thursday Dose/Route: 2.5 mg Instruction: 1 x 2.5 mg tablet Condition: Thursday Dose/Route: 2.5 mg Instruction: 1 x 2.5 mg tablet Condition: Dose/Route: 2.5 mg Instruction: 1 x 2.5 mg tablet Condition: Thursday Dose/Route: 2.5 mg Instruction: 1 x 2.5 mg tablet Condition: Thursday Dose/Route: 2.5 mg Instruction: 1 x 2.5 mg tablet Protocol Text: Adjustment Start Date: 06/18/23 INR Value: 2.4 INR Date: 06/18/23 Recheck Date: 07/18/23 Rx Instructions: 2.5 mg PO MANAGED BY DR ROMERO; Referrals / Follow Up: Damaris Bai, [facility] [Primary Care Provider] - Disposition Disposition (needs filled in before D/C Order can be placed): Home, Self Care
--- NOTE | 2023-07-29 14:55 | PN.SURG_ITS ---
Subjective Subjective Patient is seen resting comfortably in bedside chair with at bedside. He reports numbness in the R foot which is unchanged. He reports resolved pain in his RLE since surgery. He is now able to move his toes which he was not able to do prior to surgery. He had bleeding through his dressings yesterday, the dress ings were changed late yesterday afternoon. Since then, no further bleed-through noted on the dressings. He has been on full weight-based dosing of heparin since around noon yesterday. His Hgb is stable. He is urinating without difficulty, ambulating well, and tolerating a normal diet. He is eager to go home and both he and his feel he is ready for discharge. [facility] was offered for additional support and PT given his spine surgery just 1-2 weeks ago. He and his declined, they have follow-up with spine surgeon next week and will plan for PT through them. Objective Data Objective Data Vital Signs: Vital Signs Temp Pulse Resp BP Pulse Ox O2 Del Method 98.2 F 79 20 H 139/63 H 96 Room Air 07/29/23 12:00 07/29/23 13:00 07/29/23 13:00 07/29/23 13:00 07/29/23 14:26 07/29/23 14:26 Oxygen Delivery Method Room Air Weight: 187 lb 13.341 oz Body Mass Index (BMI) 27.7 Intake & Output: Intake and Output for Last 24 Hours 07/27/23 07/28/23 07/29/23 23:59 23:59 23:59 Intake Total 2505.15 / 2505.15 1246.79 / 1246.79 Output Total 1855 / 1855 890 / 890 Balance 650.15 / 650.15 356.79 / 356.79 Lab / Micro Data 07/29/23 11:45 07/28/23 04:40 Labs: Laboratory Results - last 24 hr 07/28/23 20:00: APTT 54.0 H 07/29/23 03:25: APTT 120.9 H* 07/29/23 10:25: APTT 51.0 H 07/29/23 11:45: Hgb 12.7 L Physical Exam Const alert, oriented x3 and no apparent distress General Appearance: cooperative and comfortable HEENT normocephalic, head/scalp atraumatic, hearing grossly normal bilaterally, external ears normal and external nose normal Eyes EOMs intact bilaterally General Eye: normal appearance of both eyes Neck General: normal visual inspection and trachea midline Resp normal respiratory effort, normal air movement, no retractions and no use of accessory muscles Effort and Inspection: able to speak in complete sentences; Negative for labored, grunting, stridor, retractions or audible wheezes Cardio regular rate Rhythm: abnormal rhythm irregularly irregular Extremity Extremity Narrative: R groin incision with Prevena vacuum dressing intact, no significant swelling or ecchymosis. No erythema. R lower leg fasciotomy incisions with sinai intact. Minimal oozing noted. Skin edges viable. No ecchymosis, edema. Nontender to palpation except directly over the incision. RLE with some swelling compared to left. 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 Lower leg dressings were changed. Applied Mepilex-Ag dressing to each. These will stay in place until his appt in the office next week. Also applied DANIEL wrap for some added gentle compression. He is instructed to also ensure his R leg is elevated on a few pillows when resting. R groin incision site is satisfactory in appearance. Prevena dressing will stay in place for 1 week. He has tolerated full dose heparin for over 24 hours without any bleeding complications. Will start Lovenox to bridge back to Coumadin. Plan to discharge this afternoon. He will follow-up in the office as an outpatient in 1 week.
--- NOTE | 2023-07-29 15:44 | CASEMGMT ---
Discharge Planning A list of HH providers including quality and resource use data and consistent with the patient's preferred geographic region, medical needs, and insurance network was created in [employer].? This list was provided to the RN TAMI. Zee Osborn, Discharge Planning Asst.
--- NOTE | 2023-07-29 15:59 | CHAPLAIN ---
Type of Pastoral Visit _x__ Initial Visit ___ Follow-up Visit ___ On-call Visit ___ General Patient Visit ___ Spiritual Assessment ___ Family Conference ___ Bereavement ___ Rapid Response ___ Code Blue ___ Other (describe below) Pastoral Care Referral From _x__ Patient ___ Family ___ Nurse ___ Physician ___ Process Project Engineer ___ Natural Resources Technician ___ Other (describe below) Sacrament/Intervention _x__ Active listening ___ Anointing ___ Confucianist ___ Bereavement ___ Communion ___ Ayde exploration ___ ___ Life review ___ Prayer ___ Reconciliation ___ Sacrament of Sick _x__ Supportive presence ___ Wedding ___ Other (describe below) Pastoral Comments patient and spouse together; pt states that he should be able to leave the hospital soon; pt is encouraged at improvement; both give some brief details of recent hospitalizations; pt belongs to local [employer] and has good support from there
[2023-07-29] MEDS: Enoxaparin 80 MG/0.8 ML Syringe SC (17:01)
== END 2023-07-29 18:30 | disposition home or self-care (01) | DRG 253 ==
LOC: ED 23:24 → SDC 07-28 00:39 → AC 07-28 00:40 → SDC 07-28 01:00 → ICU 07-28 01:00
PROVIDERS: Emergency Medicine; Physician Assistant; Admitting Provider Surgery Trauma Surgery; Emergency Provider Emergency Medicine; PCP Nurse Practitioner Family; Referring Provider Surgery Trauma Surgery; Visit Provider Surgery Trauma Surgery
PROC: 04CK0ZZ Extirpation of Matter from Right Femoral Artery, Open Approach (ICD-10-PCS; principal; 2023-07-28 02:00)
DX: I74.3 Embolism and thrombosis of arteries of the lower extremities (principal); I82.441 Acute embolism and thrombosis of right tibial vein; I82.451 Acute embolism and thrombosis of right peroneal vein; I70.201 Unspecified atherosclerosis of native arteries of extremities, right leg; I48.91 Unspecified atrial fibrillation; I10 Essential (primary) hypertension; E78.5 Hyperlipidemia, unspecified; R59.0 Localized enlarged lymph nodes; Z79.01 Long term (current) use of anticoagulants; Z79.899 Other long term (current) drug therapy; Z87.891 Personal history of nicotine dependence
CPT/HCPCS: 73706; 80048; 83735; 84100; 85018; 85025; 85610; 85730; 88304; 93971; 94668; 94762; 97162; 97802; 99252; 99285; A4648; C1894; Q9967; A4216; C1757; G0463

== ENCOUNTER 2023-07-31 08:27 | Outpatient (RCR) | payer MEDICARE, SELFPAY ==
[2023-06-21 20:58] VITALS: BMI 28.8
[2023-07-31 08:37] LABS: INR Fingerstick 2.1; Prothrombin Time Fingerstick 22.3 SEC (11.7-14.9)
== END 2023-08-20 18:00 | disposition home or self-care (01) ==
LOC: LAB 08:27
PROVIDERS: PCP Nurse Practitioner Family; Referring Provider Physician Assistant Medical; Visit Provider Physician Assistant Medical
DX: I70.209 Unspecified atherosclerosis of native arteries of extremities, unspecified extremity (principal); I48.11 Longstanding persistent atrial fibrillation; Z79.01 Long term (current) use of anticoagulants
CPT/HCPCS: 36416; 85610

== ENCOUNTER 2023-09-09 14:45 | Outpatient (RCR) | payer MEDICARE, SELFPAY ==
[2023-08-20 22:24] VITALS: BMI 28.8
[2023-09-09 16:30] LABS: International Normalized Ratio 2.2; Prothrombin Time (Protime)PT. 23.9 SECONDS (11.7-14.9)
[2023-09-11 13:23] LABS: INR Fingerstick 1.7
[2023-09-21 09:23] LABS: INR Fingerstick 1.6; Prothrombin Time Fingerstick 17.1 SEC (11.7-14.9)
== END 2023-09-19 18:00 | disposition home or self-care (01) ==
LOC: LAB 14:45
PROVIDERS: PCP Nurse Practitioner Family; Referring Provider Physician Assistant Medical; Visit Provider Physician Assistant Medical
DX: I70.209 Unspecified atherosclerosis of native arteries of extremities, unspecified extremity (principal); I48.11 Longstanding persistent atrial fibrillation; Z79.01 Long term (current) use of anticoagulants; I82.409 Acute embolism and thrombosis of unspecified deep veins of unspecified lower extremity
CPT/HCPCS: 36415; 36416; 85610

== ENCOUNTER → 2023-10-05 | Outpatient (CLI) | payer MEDICARE, SELFPAY ==
--- NOTE | 2023-10-05 07:51 | ART_ITS ---
Reason For Study: PVD Procedure A bilateral lower extremity continuous wave Doppler with analog waveform analysis,segmental pressures,and ankle brachial indexes without exercise. Left Segmental Pressures Left brachial= 132mmHg. Left posterior tibial artery = >254mmHg. Left dorsalis pedis artery = >254mmHg. Left digit = 81 mmHg. The left posterior tibial artery waveforms are biphasic. The left dorsalis pedis waveforms are triphasic. Right Segmental Pressures Right brachial= 127mmHg. Right posterior tibial artery = >254mmHg. Right dorsalis pedis artery = >254mmHg. Right digit = 82 mmHg. The right posterior tibial artery waveforms are triphasic. The right dorsalis pedis waveforms are triphasic. Indices The right ankle brachial index by the posterior tibial artery is N/C. The right ankle brachial index by the dorsalis pedis is N/C. The right digital-brachial index is 0.62. The left ankle brachial index by the posterior tibial artery is N/C. The left ankle brachial index by the dorsalis pedis is N/C. The left digital-brachial index is 0.61. VL/Lower Ext Art Exam w/o Exercis Interpretation Summary Right SKYLAR not able to be obtained due to non-compressible vessels. Doppler/PVR waveforms of the right ankle normal at rest. TBI diminished, pedal/digit disease vs spasm Left SKYLAR not able to be obtained due to non-compressible vessels. Doppler/PVR w aveforms of the left ankle normal at rest. TBI diminished, pedal/digit disease vs spasm Ordering Physician: Catia Booker Referring Physician: Damaris Bai Performed By: Ronnie Harley RVT
== END | disposition home or self-care (01) ==
LOC: CVS 07:50
PROVIDERS: PCP Nurse Practitioner Family; Referring Provider Physician Assistant; Visit Provider Physician Assistant
DX: I73.9 Peripheral vascular disease, unspecified (principal)
CPT/HCPCS: 93923

== ENCOUNTER → 2023-10-14 | Outpatient (CLI) | payer MEDICARE, SELFPAY ==
[2023-10-14 17:42] LABS: Absolute Lymphocyte Count 0.75 X10^3/uL (0.83-4.51); Absolute Neutrophil Count 4.8 X10^3/uL (2.0-7.7); Basophil# 0.04 X10^3/uL; Basophil% 0.6 % (0-1); Eosinophil# 0.11 X10^3/uL; Eosinophils% 1.7 % (0-5); Hematocrit 40.4 % (40-54); Hemoglobin 13.3 g/dL (13.0-16.5); Lymphocyte # 0.75 X10^3/ul (0.83-4.51); Lymphocyte % 11.6 % (19-41); Mean Corp Hgb Conc 32.9 g/dL (32-36); Mean Corpuscular Hgb 29.3 pg (27.0-32.0); Mean Platelet Vol. 10.1 fl (6.2-12.0); Monocyte# 0.73 X10^3/uL; Monocyte% 11.3 % (0-10); NRBC Flagged by Analyzer 0 % (0-5); Neutrophil # 4.81 X10^3/uL (2.7-7.7); Neutrophil % 74.6 % (47-70); Platelet Count 216 K/mm3 (150-450); RBC Distribution Width CV 12.6 % (11.6-14.6); RBC Distribution Width SD 41.7 fl (35.1-43.9); Red Blood Count 4.54 M/mm3 (4.6-6.2); White Blood Count 6.5 K/mm3 (4.4-11.0)
[2023-10-14 17:49] LABS: International Normalized Ratio 2.3
[2023-10-14 18:07] LABS: Vitamin B12 275 pg/mL (211-911); Vitamin D,25 Hydroxy 34.6 ng/mL
[2023-10-14 18:19] LABS: AST(SGOT) 32 U/L (15-37); Alanine Aminotransfer ALT/SGPT 28 U/L (16-61); Albumin, Serum 3.6 g/dL (3.2-5.0); Alkaline Phosphatase 70 U/L (45-117); Anion Gap 7 (5-15); BUN 14 mg/dL (7-18); BUN/Creat Ratio 17.6 RATIO (10-20); Calcium,Total 8.8 mg/dL (8.5-10.1); Chloride 107 mmol/L (98-107); EST Glomerular Filtration Rate 98 mL/min (>60); Est Glom Filt Rate - Afr Amer 119 mL/min (>60); Globulin 3.5 g/dL (2.2-4.2); Glucose 103 mg/dL (74-106); Iron 66 ug/dL (65-175); Potassium 3.9 mmol/L (3.5-5.1); Protein, Total 7.1 g/dL (6.4-8.2); Sodium Level 136 mmol/L (136-145); Thyroid Stim Hormone (TSH) 1.15 uIU/mL (0.358-3.74)
== END | disposition home or self-care (01) ==
LOC: BFHLAB 14:30
PROVIDERS: PCP Nurse Practitioner Family; Referring Provider Nurse Practitioner Family; Visit Provider Nurse Practitioner Family
DX: I82.409 Acute embolism and thrombosis of unspecified deep veins of unspecified lower extremity (principal); I48.11 Longstanding persistent atrial fibrillation; I70.209 Unspecified atherosclerosis of native arteries of extremities, unspecified extremity; Z79.01 Long term (current) use of anticoagulants; D64.9 Anemia, unspecified; E55.9 Vitamin D deficiency, unspecified; E53.8 Deficiency of other specified B group vitamins; E03.9 Hypothyroidism, unspecified; I10 Essential (primary) hypertension
CPT/HCPCS: 36415; 80053; 82306; 82607; 83540; 84443; 85025; 85610

== ENCOUNTER 2023-11-17 09:42 | Outpatient (RCR) | payer MEDICARE, SELFPAY ==
[2023-09-19 22:06] VITALS: BMI 28.8
[2023-11-17 10:04] LABS: Prothrombin Time Fingerstick 20.9 SEC (11.7-14.9)
== END 2023-11-17 18:00 | disposition home or self-care (01) ==
LOC: LAB 09:42
PROVIDERS: PCP Nurse Practitioner Family; Referring Provider Physician Assistant Medical; Visit Provider Physician Assistant Medical
DX: I70.209 Unspecified atherosclerosis of native arteries of extremities, unspecified extremity (principal); I48.11 Longstanding persistent atrial fibrillation; Z79.01 Long term (current) use of anticoagulants; I82.409 Acute embolism and thrombosis of unspecified deep veins of unspecified lower extremity; I10 Essential (primary) hypertension
CPT/HCPCS: 36416; 85610

== ENCOUNTER 2023-12-22 10:43 | Outpatient (RCR) | payer MEDICARE, SELFPAY ==
[2023-11-23 09:17] VITALS: BMI 28.8
[2023-12-22 10:55] LABS: INR Fingerstick 2.2; Prothrombin Time Fingerstick 23.3 SEC (11.7-14.9)
== END 2024-01-20 18:00 | disposition home or self-care (01) ==
LOC: LAB 10:43
PROVIDERS: PCP Nurse Practitioner Family; Referring Provider Physician Assistant Medical; Visit Provider Physician Assistant Medical
DX: Z79.01 Long term (current) use of anticoagulants; I10 Essential (primary) hypertension; I82.409 Acute embolism and thrombosis of unspecified deep veins of unspecified lower extremity
CPT/HCPCS: 36416; 85610

== ENCOUNTER 2024-02-11 11:36 | Outpatient (RCR) | payer MEDICARE, SELFPAY ==
[2024-01-20 20:43] VITALS: BMI 28.8
[2024-02-11 11:53] LABS: INR Fingerstick 2.1; Prothrombin Time Fingerstick 22.1 SEC (11.7-14.9)
== END 2024-02-11 18:00 | disposition home or self-care (01) ==
LOC: LAB 11:36
PROVIDERS: PCP Nurse Practitioner Family; Referring Provider Physician Assistant Medical; Visit Provider Physician Assistant Medical
DX: Z79.01 Long term (current) use of anticoagulants; I10 Essential (primary) hypertension; I82.409 Acute embolism and thrombosis of unspecified deep veins of unspecified lower extremity
CPT/HCPCS: 36416; 85610

== ENCOUNTER 2024-02-24 14:44 | Outpatient (RCR) | payer MEDICARE, SELFPAY ==
[2024-02-21 02:20] VITALS: BMI 28.8
--- NOTE | 2024-02-24 14:55 | RAD_ITS ---
STUDY: X-RAY - PELVIS AND RIGHT HIP REASON FOR EXAM: Male, 83 years old. Assess surgical hardware. TECHNIQUE: 3 views of the pelvis and hip. COMPARISON: October 11, 2005 FINDINGS: Normal bowel gas pattern. Vascular calcification and phleboliths. Marked osteopenia. 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 Bilateral total hip arthroplasties in anatomic alignment without complications in the visualized portions of the prostheses. Moderate lower lumbosacral spondylosis. RAD/HIP, UNI W/ Pelvis 2-3 Views IMPRESSION: Osteopenia with uncomplicated bilateral total hip arthroplasties. Electronically Signed: Ivan Lemons MD at 15:28 EDT ,
[2024-02-24 17:46] LABS: International Normalized Ratio 2.2; Prothrombin Time (Protime)PT. 24.3 SECONDS (11.7-14.9)
== END 2024-02-24 18:00 | disposition home or self-care (01) ==
LOC: MTLAB 14:44
PROVIDERS: Internal Medicine Cardiovascular Disease; PCP Nurse Practitioner Family; Referring Provider Physician Assistant Medical; Visit Provider Physician Assistant Medical
DX: Z79.01 Long term (current) use of anticoagulants; I10 Essential (primary) hypertension; I82.409 Acute embolism and thrombosis of unspecified deep veins of unspecified lower extremity; M25.511 Pain in right shoulder; N52.9 Male erectile dysfunction, unspecified
CPT/HCPCS: 36415; 73502; 84403; 85610

== ENCOUNTER 2024-04-14 08:45 | Outpatient (RCR) | payer MEDICARE, SELFPAY ==
[2024-03-22 04:53] VITALS: BMI 28.8
[2024-04-16 11:15] LABS: INR Fingerstick 2.4; Prothrombin Time Fingerstick 25.4 SEC (11.7-14.9)
[2024-04-21 12:07] LABS: INR Fingerstick 2.4; Prothrombin Time Fingerstick 25.4 SEC (11.7-14.9)
== END 2024-04-14 18:00 | disposition home or self-care (01) ==
LOC: MTLAB 08:45
PROVIDERS: PCP Nurse Practitioner Family; Referring Provider Physician Assistant Medical; Visit Provider Physician Assistant Medical
DX: Z79.01 Long term (current) use of anticoagulants; I82.409 Acute embolism and thrombosis of unspecified deep veins of unspecified lower extremity; I10 Essential (primary) hypertension
CPT/HCPCS: 36416; 85610

== ENCOUNTER → 2024-04-14 | Outpatient (CLI) | payer MEDICARE, SELFPAY ==
--- NOTE | 2024-04-14 07:57 | ART_ITS ---
Reason For Study: S/P RLE EMBOLECTOMY/FASCIOTOMY Procedure A bilateral lower extremity continuous wave Doppler with analog waveform analysis,segmental pressures,and ankle brachial indexes without exercise. Original order was LEAS w/exercise. 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 Left Segmental Pressures Left brachial= 142mmHg. Left posterior tibial artery = >254mmHg. Left dorsalis pedis artery = >254mmHg. Left digit = 114 mmHg. The left posterior tibial artery waveforms are biphasic. The left dorsalis pedis waveforms are biphasic. Right Segmental Pressures Right brachial= 133mmHg. Right posterior tibial artery = >254mmHg. Right dorsalis pedis artery = >254mmHg. Right digit = 117 mmHg. The right posterior tibial artery waveforms are triphasic. The right dorsalis pedis waveforms are triphasic. Indices The right digital-brachial index is 0.82. The right ankle brachial index by the posterior tibial artery is -NC-. The right ankle brachial index by the dorsalis pedis is -NC-. The left digital- brachial index is 0.80. The left ankle brachial index by the posterior tibial artery is -NC-. The left ankle brachial index by the dorsalis pedis is -NC-. VL/Lower Ext Art Exam w/o Exercis Interpretation Summary Right SKYLAR unable to be obtained due to non-compressible vessels. TBI and Dopple r/PVR waveforms of the right leg normal at rest. Left SKYLAR not able to be obtained due to non-compressible vessels. TBI normal. D oppler/PVR waveforms of the left leg mildly diminished at rest. Ordering Physician: Catia Booker Referring Physician: Damaris Bai Performed By: Sejal Kitchen RVT, RDCS
== END | disposition home or self-care (01) ==
LOC: CVS 07:56
PROVIDERS: PCP Nurse Practitioner Family; Referring Provider Physician Assistant; Visit Provider Physician Assistant
DX: I74.3 Embolism and thrombosis of arteries of the lower extremities (principal)
CPT/HCPCS: 93923

== ENCOUNTER → 2024-05-05 | Outpatient (CLI) | payer MEDICARE, SELFPAY ==
--- NOTE | 2024-05-05 15:01 | ECHOD_ITS ---
Reason For Study: AFib/Flutter Procedure This was a 2D Doppler, Color Flow transthoracic echocardiogram. Exam performed in department. Left Ventricle Normal LV size. Left ventricular systolic function is normal. The left ventricular ejection fraction is 60 %. No regional wall motion abnormalities noted. Right Ventricle Normal RV size. Normal systolic function. Atria The left atrium is moderately enlarged. The right atrium is moderately enlarged. Mitral Valve Normal mitral valve. Tricuspid Valve Normal tricuspid valve. Mild (1+) tricuspid valve insufficiency. Pulmonary artery systolic pressure is 40 mmHg. Aortic Valve Trisinus/trileaflet aortic valve. Mild diffuse aortic valve thickening. Pulmonic Valve Normal pulmonic valve. Great Vessels Normal aortic root. The pulmonary artery is normal size. Inferior vena cava collapse with sniff. Pericardium/Pleural No pericardial effusion. MMode/2D Measurements & Calculations LVIDd: 4.4 cm IVSd: 1.3 cm Ao root diam: 3.5 cm LVIDs: 2.8 cm LVPWd: 0.98 cm RVDd: 4.4 cm FS: 35.9 % asc Aorta Diam: 3.3 cm LAV(MOD-bp): 83.8 ml LVAd ap4: 22.6 cm2 LAV(MOD-bp) Indexed: 40.8 ml/m2 LVLd ap4: 6.9 cm LAV(MOD-sp2): 68.3 ml EDV(MOD-sp4): 63.5 ml LAV(MOD-sp4): 81.7 ml EDV(sp4-el): 63.0 ml LVAs ap4: 14.6 cm2 LVLs ap4: 6.1 cm ESV(MOD-sp4): 31.5 ml ESV(sp4-el): 29.8 ml EF(MOD-sp4): 50.4 % EF(sp4-el): 52.7 % SV(MOD-sp4): 32.0 ml SV(sp4-el): 33.2 ml LA A4 area: 27.1 cm2 SI(MOD-sp4): 15.6 ml/m2 LA dimension(2D): 4.9 cm RA A4 area: 25.9 cm2 TAPSE: 1.2 cm Doppler Measurements & Calculations MV E max elias: 100.2 cm/sec MV V2 max: 109.2 cm/sec Ao V2 max: 130.9 cm/sec MV max P.8 mmHg Ao max P.9 mmHg MV V2 mean: 55.7 cm/sec Ao V2 mean: 91.3 cm/sec MV mean P.5 mmHg Ao mean P.8 mmHg MV V2 VTI: 26.6 cm Ao V2 VTI: 29.7 cm AV (velocity ratio): 0.57 LV V1 max: 76.9 cm/sec PA V2 max: 77.5 cm/sec TR max elias: 295.8 cm/sec LV V1 max P.4 mmHg TR max P.0 mmHg LV V1 mean P.2 mmHg LV V1 mean: 51.2 cm/sec LV V1 VTI: 16.8 cm ECHO/Echo Complete Interpretation Summary Normal LV size. Left ventricular systolic function is normal. The left ventricular ejection fraction is 60 %. The left atrium is moderately enlarged. The right atrium is moderately enlarged. Pulmonary artery systolic pressure is 40 mmHg. Ordering Physician: Andrez Fernandez Referring Physician: Andrez Fernandez Performed By: Nestor Madison RCS
== END | disposition home or self-care (01) ==
LOC: CVS 15:00
PROVIDERS: PCP Nurse Practitioner Family; Referring Provider Internal Medicine Cardiovascular Disease; Visit Provider Internal Medicine Cardiovascular Disease
DX: I48.11 Longstanding persistent atrial fibrillation (principal)
CPT/HCPCS: 93306

== ENCOUNTER 2024-05-13 11:38 | Outpatient (RCR) | payer MEDICARE, SELFPAY ==
[2024-04-21 21:13] VITALS: BMI 28.8
[2024-05-13 11:48] LABS: INR Fingerstick 2.7; Prothrombin Time Fingerstick 28.3 SEC (11.7-14.9)
== END 2024-05-21 18:00 | disposition home or self-care (01) ==
LOC: MTLAB 11:38
PROVIDERS: PCP Nurse Practitioner Family; Referring Provider Physician Assistant Medical; Visit Provider Physician Assistant Medical
DX: I10 Essential (primary) hypertension; Z79.01 Long term (current) use of anticoagulants; I82.409 Acute embolism and thrombosis of unspecified deep veins of unspecified lower extremity
CPT/HCPCS: 36416; 85610

== ENCOUNTER 2024-07-08 15:25 | Outpatient (RCR) | payer MEDICARE, SELFPAY ==
[2024-05-22 02:26] VITALS: BMI 28.8
[2024-07-08 16:10] LABS: INR Fingerstick 2.7; Prothrombin Time Fingerstick 27.5 SEC (11.7-14.9)
== END 2024-07-08 18:00 | disposition home or self-care (01) ==
LOC: MTLAB 15:25
PROVIDERS: PCP Nurse Practitioner Family; Referring Provider Physician Assistant Medical; Visit Provider Physician Assistant Medical
DX: I70.209 Unspecified atherosclerosis of native arteries of extremities, unspecified extremity (principal); I48.11 Longstanding persistent atrial fibrillation; Z79.01 Long term (current) use of anticoagulants; I48.91 Unspecified atrial fibrillation

== ENCOUNTER 2024-08-16 13:04 | Outpatient (RCR) | payer MEDICARE, SELFPAY ==
[2024-07-23 02:24] VITALS: BMI 28.8
[2024-08-16 13:13] LABS: INR Fingerstick 2.3
== END 2024-08-19 18:00 | disposition home or self-care (01) ==
LOC: MTLAB 13:04
PROVIDERS: PCP Nurse Practitioner Family; Referring Provider Physician Assistant Medical; Visit Provider Physician Assistant Medical
DX: I70.209 Unspecified atherosclerosis of native arteries of extremities, unspecified extremity (principal); I48.11 Longstanding persistent atrial fibrillation; Z79.01 Long term (current) use of anticoagulants; I48.91 Unspecified atrial fibrillation
CPT/HCPCS: 36416; 85610

== ENCOUNTER 2024-09-13 10:24 | Outpatient (RCR) | payer MEDICARE, SELFPAY ==
[2024-08-20 07:38] VITALS: BMI 28.8
[2024-09-13 10:32] LABS: INR Fingerstick 2.8; Prothrombin Time Fingerstick 29.5 SEC (11.7-14.9)
== END 2024-09-13 18:00 | disposition home or self-care (01) ==
LOC: LAB 10:24
PROVIDERS: PCP Nurse Practitioner Family; Referring Provider Physician Assistant Medical; Visit Provider Physician Assistant Medical
DX: Z86.718 Personal history of other venous thrombosis and embolism; Z79.01 Long term (current) use of anticoagulants
CPT/HCPCS: 36416; 85610

== ENCOUNTER → 2024-09-21 | Outpatient (CLI) | payer MEDICARE, SELFPAY ==
--- NOTE | 2024-09-21 07:54 | ART_ITS ---
Reason For Study Reason For Study: RLE Embolectomy Procedure A bilateral lower extremity continuous wave Doppler with analog waveform analysis,segmental pressures,and ankle brachial indexes without exercise. Left Segmental Pressures Left brachial= 130mmHg. Left posterior tibial artery = >254mmHg. Left dorsalis pedis artery = >254mmHg. Left digit = 0.54 mmHg. The left posterior tibial artery waveforms are biphasic. The left dorsalis pedis waveforms are biphasic. Right Segmental Pressures Right brachial= 137mmHg. Right posterior tibial artery = >254mmHg. Right dorsalis pedis artery = >254mmHg. Right digit = 106 mmHg. The right posterior tibial artery waveforms are triphasic. The right dorsalis pedis waveforms are triphasic. Indices The right ankle brachial index by the posterior tibial artery is N/C. The right ankle brachial index by the dorsalis pedis is N/C. The right digital-brachial index is 0.77. Did not exercise patient due to NONCOMPRESSIBLE SKYLAR at rest. The left ankle brachial index by the posterior tibial artery is N/C. The left ankle brachial index by the dorsalis pedis is N/C. The left digital-brachial index is 0.54. Did not exercise patient due to NONCOMPRESSIBLE SKYLAR at rest. VL/Lower Ext Art Exam w/o Exercis Interpretation Summary Right SKYLAR not able to be obtained due to non compressible vessels. TBI and Dopp ler/PVR waveforms of the right leg normal at rest. Left SKYLAR not able to be obtained due to non-compressible vessels. TBI and Doppl er/PVR waveforms of the left leg mildly diminished at rest Ordering Physician: Catia Booker Referring Physician: Damaris Bai Performed By: Ronnie Harley RVT
== END | disposition home or self-care (01) ==
LOC: CVS 07:54
PROVIDERS: PCP Nurse Practitioner Family; Referring Provider Physician Assistant; Visit Provider Physician Assistant
DX: I73.9 Peripheral vascular disease, unspecified (principal)
CPT/HCPCS: 93923

== ENCOUNTER 2024-10-25 11:13 | Outpatient (RCR) | payer MEDICARE, SELFPAY ==
[2024-09-19 21:52] VITALS: BMI 28.8
[2024-10-25 11:51] LABS: INR Fingerstick 2.6; Prothrombin Time Fingerstick 27.7 SEC (11.7-14.9)
== END 2024-10-25 18:00 | disposition home or self-care (01) ==
LOC: LAB 11:13
PROVIDERS: PCP Nurse Practitioner Family; Referring Provider Physician Assistant Medical; Visit Provider Physician Assistant Medical
DX: Z79.01 Long term (current) use of anticoagulants; I82.409 Acute embolism and thrombosis of unspecified deep veins of unspecified lower extremity
CPT/HCPCS: 36416; 85610

== ENCOUNTER 2024-12-15 09:43 | Outpatient (RCR) | payer MEDICARE, SELFPAY ==
[2024-11-19 20:46] VITALS: BMI 28.8
[2024-12-15 09:52] LABS: Prothrombin Time Fingerstick 21.9 SEC (11.7-14.9)
== END 2024-12-15 18:00 | disposition home or self-care (01) ==
LOC: LAB 09:43
PROVIDERS: PCP Nurse Practitioner Family; Referring Provider Physician Assistant Medical; Visit Provider Physician Assistant Medical
DX: I48.11 Longstanding persistent atrial fibrillation; Z79.01 Long term (current) use of anticoagulants
CPT/HCPCS: 36416; 85610

== ENCOUNTER → 2025-01-06 | Outpatient (CLI) | payer MEDICARE, SELFPAY ==
--- NOTE | 2025-01-06 14:25 | RAD_ITS ---
EXAM: XR Left Hip With Pelvis When Performed, 2 or 3 Views CLINICAL INDICATION: HIP PAIN, HISTORY OF FALL TECHNIQUE: Two or three views of the left hip with pelvis when performed. COMPARISON: No relevant prior studies available. FINDINGS: BONES/JOINTS: Hip replacement. Intact hardware. Anatomic position. Healed fracture deformity of the mid femur. No dislocation. SOFT TISSUES: Unremarkable. RAD/HIP, UNI W/ Pelvis 2-3 Views IMPRESSION: Postoperative changes as above. Reading Location: [id number]
== END | disposition home or self-care (01) ==
LOC: RAD 14:21
PROVIDERS: PCP Nurse Practitioner Family; Referring Provider Nurse Practitioner Family; Visit Provider Nurse Practitioner Family
DX: M25.552 Pain in left hip (principal); Z91.81 History of falling
CPT/HCPCS: 73502

== ENCOUNTER 2025-01-30 08:08 | Outpatient (RCR) | payer MEDICARE, SELFPAY ==
[2025-01-30 08:19] LABS: INR Fingerstick 3.0
== END 2025-01-30 18:00 | disposition home or self-care (01) ==
LOC: LAB 08:08
PROVIDERS: PCP Nurse Practitioner Family; Referring Provider Physician Assistant Medical; Visit Provider Physician Assistant Medical
DX: I48.11 Longstanding persistent atrial fibrillation; Z79.01 Long term (current) use of anticoagulants
CPT/HCPCS: 36416; 85610

== ENCOUNTER 2025-03-13 11:44 | Outpatient (RCR) | payer MEDICARE, SELFPAY ==
[2025-03-13 11:55] LABS: INR Fingerstick 2.6
== END 2025-03-21 18:00 | disposition home or self-care (01) ==
LOC: LAB 11:44
PROVIDERS: PCP Nurse Practitioner Family; Referring Provider Physician Assistant Medical; Visit Provider Physician Assistant Medical
DX: I48.11 Longstanding persistent atrial fibrillation; Z79.01 Long term (current) use of anticoagulants
CPT/HCPCS: 36416; 85610

== ENCOUNTER 2025-04-17 11:07 | Outpatient (RCR) | payer MEDICARE, SELFPAY ==
[2025-04-17 11:20] LABS: INR Fingerstick 2.2
== END 2025-04-17 18:00 | disposition home or self-care (01) ==
LOC: LAB 11:07
PROVIDERS: PCP Nurse Practitioner Family; Referring Provider Physician Assistant Medical; Visit Provider Physician Assistant Medical
DX: I48.11 Longstanding persistent atrial fibrillation; Z79.01 Long term (current) use of anticoagulants
CPT/HCPCS: 36416; 85610

== ENCOUNTER 2025-05-24 09:42 | Outpatient (RCR) | payer MEDICARE, SELFPAY ==
[2025-05-24 09:50] LABS: INR Fingerstick 2.1
== END 2025-05-24 18:00 | disposition home or self-care (01) ==
LOC: LAB 09:42
PROVIDERS: PCP Nurse Practitioner Family; Referring Provider Physician Assistant Medical; Visit Provider Physician Assistant Medical
DX: I48.11 Longstanding persistent atrial fibrillation (principal); Z79.01 Long term (current) use of anticoagulants
CPT/HCPCS: 36416; 85610

== ENCOUNTER → 2025-05-25 | Outpatient (CLI) | payer MEDICARE, SELFPAY ==
[2025-05-25 16:15] LABS: Hematocrit 46.9 % (40-54); Hemoglobin 15.7 g/dL (13.0-16.5); Immature Granulocytes Count 0.020 X10^3/uL (0.0-0.0); Mean Corp Hgb Conc 33.5 g/dL (32-36); Mean Corpuscular Volume 94.9 fL (80-94); Mean Platelet Vol. 9.7 fl (6.2-12.0); NRBC Flagged by Analyzer 0 % (0-5); Platelet Count 183 K/mm3 (150-450); RBC Distribution Width CV 12.7 % (11.6-14.6); RBC Distribution Width SD 44.1 fl (35.1-43.9); Red Blood Count 4.94 M/mm3 (4.6-6.2); White Blood Count 6.3 K/mm3 (4.4-11.0)
[2025-05-25 16:19] LABS: CRP < 3.00 mg/L (0.0-3.0)
== END | disposition home or self-care (01) ==
LOC: LAB 15:03
PROVIDERS: PCP Nurse Practitioner Family; Referring Provider Ophthalmology; Visit Provider Ophthalmology
DX: G45.3 Amaurosis fugax (principal)
CPT/HCPCS: 36415; 85025; 85652; 86140

== ENCOUNTER → 2025-06-07 | Outpatient (CLI) | payer MEDICARE, SELFPAY ==
--- NOTE | 2025-06-07 08:57 | CDU_ITS ---
Reason For Study Reason For Study: Amaurosis Fugax Rt. Velocities/BP Lt. Velocities/BP Prox CCA 65.2/6.9 cm/sec. Prox CCA 56.1/9.0 cm/sec. Mid CCA 65.2/9.1 cm/sec. Mid CCA 48.2/8.1 cm/sec. Dist CCA 54.2/10.2 cm/sec. Dist CCA 48.2/13.3 cm/sec. Prox ICA 40.9/7.8 cm/sec. Prox ICA 41.3/9.9 cm/sec. Mid ICA 58.9/17.3 cm/sec. Mid ICA 51.7/12.5 cm/sec. Dist ICA 51.7/15.1 cm/sec. Dist ICA 56.1/19.5 cm/sec. Rt. ICA/CCA = 0.9. Lt. ICA/CCA = 1.2. Prox ECA 83.9/5.8 cm/sec. Prox ECA 67.4/5.5 cm/sec. Rt. Vert. 52.6/13.3 cm/sec. Lt. Vert. 33.4/7.2 cm/sec. Right Extracranial There is heterogeneous, irregular atherosclerotic plaque noted in the right common carotid artery. There is heterogeneous, irregular atherosclerotic plaque noted in the right internal carotid artery. There is intimal thickening but no significant atherosclerotic plaque noted in the right external carotid artery. Antegrade flow is noted in the right vertebral artery. Left Extracranial There is heterogeneous, irregular atherosclerotic plaque noted in the left common carotid artery. There is heterogeneous, irregular atherosclerotic plaque noted in the left internal carotid artery. There is heterogeneous, irregular atherosclerotic plaque noted in the left external carotid artery. Antegrade flow is noted in the left vertebral artery. Procedure Carotid Duplex [id number]. This is a Carotid Duplex examination using B-mode, color flow and specral Doppler. Exam performed in department. VL/Carotid Duplex Ultrasound Interpretation Summary Mild (<50%) stenosis right extracranial internal carotid. Mild (<50%) stenosis left extracranial internal carotid. Patent and antegrade vertebrals bilaterally. Ordering Physician: Corin Mckeon Referring Physician: Corin Mckeon Performed By: Ayde Jarrett, SHANI
== END | disposition home or self-care (01) ==
LOC: CVS 08:55
PROVIDERS: PCP Nurse Practitioner Family; Referring Provider Physician Assistant Medical; Visit Provider Physician Assistant Medical
DX: G45.3 Amaurosis fugax (principal)
CPT/HCPCS: 93880